=== PATIENT | female | born 1985 | race Caucasian/White ===

== ENCOUNTER 2018-07-19 12:25 | Inpatient (IN) | payer OTHER ==
[~2018-07-19 12:25] MED LIST: CITRIC ACID/SODIUM CITRATE 30 ML UNIT-DOSE CUP PO ONE; ELECTROLYTE-148 SOLN 1,000 ML IV ONE
[2018-07-19 13:23] VITALS: BMI 47.0
[2018-07-19] MEDS ORDERED: ELECTROLYTE-148 SOLN 1,000 ML IV SCH (13:25)
[2018-07-19] MEDS ORDERED: OXYTOCIN 20 UNITS in 0.9% NS 40 UNIT/2,000 ML INFUS.BAG IV ONE (13:36)
[2018-07-19] MEDS ORDERED: ONDANSETRON 4 MG/2 ML VIAL IVPUSH PRN (13:43)
[2018-07-19] MEDS ORDERED: morphine SULFATE/Preservative Free 0.5 MG/ML (1cc Syringe) ONE (13:54)
[2018-07-19 13:56] LABS: ANION GAP 11 MMOL/L (8-16); BLOOD UREA NITROGEN 9 mg/dL (7-18); CALCIUM 8.7 mg/dL (8.5-10.1); CHLORIDE 108 mmol/L (98-107); CO2 19 mmol/L (21-32); CREATININE 0.5 mg/dL (0.55-1.3); GLUCOSE,RANDOM 70 mg/dL (74-106); POTASSIUM 3.9 mmol/L (3.5-5.1); SODIUM 138 mmol/L (136-145)
[2018-07-19] MEDS ORDERED: CITRIC ACID/SODIUM CITRATE 30 ML UNIT-DOSE CUP PO ONE (14:01)
[2018-07-19] MEDS ORDERED: KETOROLAC TROMETHAMINE 30 MG/1 ML VIAL ONE (14:02)
[2018-07-19] MEDS ORDERED: ePHEDrine SULFATE 50 MG/1 ML AMPULE ONE (14:15)
[2018-07-19] MEDS ORDERED: ceFAZolin SODIUM 1 GM VIAL ONE (14:18)
[2018-07-19] MEDS ORDERED: IBUPROFEN 800 MG/8 ML IJ IVPB PRN (15:20)
[2018-07-19] MEDS ORDERED: METHYLERGONOVINE MALEATE 0.2 MG/1 ML AMP IM PRN (15:20)
--- NOTE | 2018-07-19 15:20 | OP ---
Operative Note - Note: Operative Date: 07/19/18 Pre-Operative Diagnosis: Repeat Low Transverse , Bilateral Tubal Ligation Operation: RLTCS, BTL Findings: VFI, TRINY, tight nuchal x 1, no meconium. Normal tubes and ovaries. Weight 7.14lbs, Apgars 9/9. Post-Operative Diagnosis: Same as Pre-op Surgeon: Elsie Mayo Truck Driver Instructor: Chaka Lund Anesthesia: Spinal Estimated Blood Loss (mls): 800 Drains, Volume Out (mls): 100 (clear urine) Operative Report Dictated: Yes
[2018-07-19] MEDS ORDERED: OXYTOCIN 20 UNITS in 0.9% NS 20 UNIT/1,000 ML INFUS.BAG IV SCH (15:30)
--- NOTE | 2018-07-19 16:17 | HP ---
Past Medical History - Admission Chief Complaint: Here for RLTCS, BTL History of Present Illness: 32yo @ 39wks here for RLTCS, BTL No VB/LOF. No ctx. +FM History Source: Patient Limitations to Obtaining History: No Limitations, Language Barrier - Past Medical History RETAIL ASSOCIATE: No: Alzheimer's, CVA, Dementia, Migraine, Multiple Sclerosis, Peripheral Neuropathy, Parkinson's, Seizure, Syncope, TIA, Vertigo, Other Cardiovascular: No: AFIB, Aneurysm, Aortic Insufficiency, Aortic Stenosis, CAD, CHF, Deep Vein Thrombosis, HTN, Hyperlipdemia, NE, Mitral Insufficiency, Mitral Stenosis, Murmur, Pulmonary Hypertension, Other Pulmonary: No: Asthma, Bronchitis, Cancer, COPD, O2 Dependent, Pneumonia, Previously Intubated, Pulmonary Embolus, Pulmonary Fibrosis, Sleep Apnea, Other Gastrointestinal: No: Ascites, Cancer, Constipation, Crohn's Disease, Diverticulitis, Diverticulosis, Esophageal Varices, Gastritis, GERD, GI Bleed, Hemorrhoids, Hiatal Hernia, Inflamatory Bowel Disease, Irritable Bowel Disease, Pancreatitis, Peptic Ulcer Disease, Ulcerative Colitis, Other Renal/: No: Renal Failure, Renal Inusuff, BPH, Cancer, Hematuria, Hemodialysis , Neurogenic Bladder, Renal Calculi, UTI, Other ...: 5 ...Para: 3 ...Term: 3 ...: 0 ...Spon : 0 ...Induced : 1 ...Multiple Gestation: 0 ...LMP: 10/19/17 ... Weeks Gestation by Dates: 39.0 ...EDC by Dates: 07/26/18 ...EDC by Sono: 07/26/18 - Past Surgical History Past Surgical History: Yes: Hx Myomectomy: No Hx Transabdominal Cerclage: No - Smoking History Smoking history: Never smoked Have you smoked in the past 12 months: No - Alcohol/Substance Use Hx Alcohol Use: No Home Medications - Allergies Allergies/Adverse Reactions: Allergies Allergy/AdvReac Type Severity Reaction Status Date / Time No Known Allergies Allergy Verified 07/19/18 12:46 - Home Medications Home Medications: Ambulatory Orders Ferrous Sulfate [Feosol] 325 mg PO DAILY 07/19/18 Vits96/Iron Fum/Folic [ Tablet] 1 each PO DAILY 07/19/18 Physical Exam - Maternity Vital Signs: Vital Signs Temperature 98.0 F 07/19/18 13:00 Pulse Rate 84 07/19/18 13:00 Respiratory Rate 18 07/19/18 13:00 Blood Pressure 129/81 07/19/18 13:00 O2 Sat by Pulse Oximetry (%) Constitutional: Yes: Well Nourished, No Distress, Calm Eyes: Yes: WNL, Conjunctiva Clear, EOM Intact HENT: Yes: WNL, Atraumatic, Normocephalic Neck: Yes: WNL, Supple, Trachea Midline Cardiovascular: Yes: WNL, Regular Rate and Rhythm Breast(s): Yes: WNL - Labs Lab Results: CBC, BMP 07/19/18 12:54 Assessment/Plan 32yo @ 39wks here for RLTCS, BTL Admit to L&D NPO, IVFs Ancef 2g SCDs Risk of procedure discussed, including bleeding, infection, injury to bladder, bowel, nerves/arteries/veins. All consents Ryne Mayo MD
[2018-07-19] MEDS: FERROUS SO4 325 MG TABLET (FP) PO SCH (23:16)
[2018-07-20 08:11] LABS: BASO % 0.3 % (0-2.0); EOS % 0.7 % (0-4.5); HEMATOCRIT 29.3 % (32.4-45.2); HEMOGLOBIN 9.8 GM/dL (10.7-15.3); LYMPH % 16.6 % (8-40); MCH 30.5 pg (25.7-33.7); MCHC 33.4 g/dl (32.0-36.0); MEAN CELL VOLUME 91.3 fl (80-96); MEAN PLT VOLUME 8.9 fl (7.5-11.1); NEUT % 75.4 % (42.8-82.8); PLATELET COUNT 216 K/MM3 (134-434); RDW 14.2 % (11.6-15.6); WHITE BLOOD COUNT 11.3 K/mm3 (4.0-10.0)
[2018-07-20] MEDS: FERROUS SO4 325 MG TABLET (FP) PO SCH ×2 (09:11→21:57)
[2018-07-20] MEDS: PRENATAL VITAMINS W/ FOLIC ACID TABLET (FP) PO SCH (09:12)
--- NOTE | 2018-07-20 09:21 | OP ---
DATE OF OPERATION: 07/19/2018 PREOPERATIVE DIAGNOSIS: A 39-week , 3 prior sections, desires permanent sterilization. POSTOPERATIVE DIAGNOSIS: A 39-week , 3 prior sections, desires permanent sterilization. PROCEDURE: Repeat low transverse section, bilateral tubal ligation. ANESTHESIA: Spinal. SURGEON: Elsie Mayo MD ORCHARD PRUNER: ROSSY Herron ESTIMATED BLOOD LOSS: 800 mL. INTRAVENOUS FLUIDS: Per anesthesia record. URINE: Clear urine 100 mL at the end of the procedure. FINDINGS: Viable female infant, TRINY position, nuchal x1, tight, delivered through, no meconium, weight 7 pounds 14 ounces, 9, 9, normal tubes and ovaries bilaterally. CONDITION: Stable to recovery room. NATURE OF PROCEDURE: After appropriate consents were signed, the patient was taken to the operating room where spinal anesthesia was administered. She was laid in supine position with a left lateral tilt. Morocho catheter was inserted. Abdomen was prepped and draped in normal sterile fashion. A Pfannenstiel incision was made after the time-out confirmed correct patient and placement. A Pfannenstiel incision was carried through to the underlying layer and the fascia was nicked in the midline. Fascia was extended bilaterally with the Rangel scissors. The fascia was then grasped in the inferior aspect, tented upward, and the rectus muscles dissected off bluntly and with the Rangel scissors. Attention was then paid to the superior aspect, which was taken down in a similar fashion. The muscles were grasped in the midline and with a scalpel. The peritoneum was then entered bluntly. Bladder blade was then inserted as well as the Quevedo retractor. The uterine serosa was then grasped, nicked in the midline, and extended laterally with the Metzenbaum scissors. The bladder flap was created digitally and the blade was then reinserted. The uterus was then incised in the low transverse fashion. Clear amniotic fluid was noted. The head was delivered without difficulty. Tight nuchal was noted , but delivered through. The cord was then clamped and cut upon delivery of the , and it was handed off to the awaiting pediatric staff. The placenta was then removed manually. The uterus was then exteriorized, cleared of clot and debris. The uterus was then closed in a single layer with a 0 Vicryl in an imbricating fashion. There was bleeding at the right edge of the hysterotomy. This was reinforced with another 0 Vicryl. Hemostasis was then noted. Attention was paid to the tubes for tubal ligation. The right tube was grasped with a Guicho, carried through to the fimbriated edge, which appeared normal throughout. The tube was grasped centrally with a Guicho, tented upwards. Using a 0 plain suture, the tube was suture ligated in the [place] fashion. The tubal segment was removed with the Metzenbaum scissors. The tubal stumps were burned with the cautery, and the tubal segment was sent off for pathology. Attention was then paid to the left fallopian tube, which was then ligated in the [place] fashion. Tubal segment was removed with the Metzenbaum scissor. Tubal stump was cauterized with the Bovie. Both tubal stumps were noted to be hemostatic. The hysterotomy was rechecked, also noted to be hemostatic. The uterus was then reintroduced into the abdomen. Bladder blade was reinserted. The hysterotomy was hemostatic. The fallopian tube segments were rechecked and also noted to be hemostatic. Gutters were cleared of clot and debris. Muscle was closed with a 2-0 chromic, fascia was closed with a 0 Vicryl , the subcutaneous layer was closed with a 3-0 chromic, the skin was reapproximated with phyllis. Appropriate bandages were placed. Sponge, lap, needle counts were correct x3. Ancef was given at the start of the procedure. Patient tolerated the procedure well and was taken to the recovery room in stable condition. MD DELL JULIEN/[id number] MTDD
[2018-07-20] MEDS ORDERED: DIPHTH,PERTUSS(ACELL),TET 0.5 ML DISP.SYRIN IM ONE (10:00)
--- NOTE | 2018-07-20 11:27 | PN ---
Progress Note (short form) - Note Progress Note: Anesthesia/pain Pt seen and examined S:Alert and awake comfortable O: Vital Signs Temperature 98.6 F 07/20/18 08:18 Pulse Rate 85 07/20/18 08:18 Respiratory Rate 20 07/20/18 11:00 Blood Pressure 108/59 L 07/20/18 08:18 O2 Sat by Pulse Oximetry (%) 100 07/19/18 16:40 CBC, BMP 07/20/18 07:00 07/19/18 12:54 A/P c section s/p Doing well post op Continue current care Tarun Parnell MD
[2018-07-20] MEDS: oxyCODONE HCL 5 MG TABLET PO PRN ×2 (12:43→22:01)
[2018-07-20] MEDS: SIMETHICONE 80 MG TAB.CHEW (FP) PO PRN ×2 (12:43→22:00)
[2018-07-20] MEDS: IBUPROFEN 600 MG TABLET (FP) PO PRN ×2 (12:43→22:01)
--- NOTE | 2018-07-20 13:14 | PN ---
Post Progress Note Type of Delivery: Repeat C/S Vital Signs: Vital Signs Temperature 98.1 F 07/20/18 13:10 Pulse Rate 85 07/20/18 13:10 Respiratory Rate 20 07/20/18 13:10 Blood Pressure 91/56 L 07/20/18 13:10 O2 Sat by Pulse Oximetry (%) 100 07/19/18 16:40 Uterus: Yes: Fundus Firm Incision: Yes: Dressing dry and intact Abdomen/GI: Yes: Abdomen soft Lochia: Yes: Rubra Lochia, amount: Small Extremities: Yes: Calves non-tender Perineum: Yes: Intact Activity: Ambulating - Labs Labs: CBC WBC 11.3 K/mm3 (4.0-10.0) H 07/20/18 07:00 RBC 3.20 M/mm3 (3.60-5.2) L 07/20/18 07:00 Hgb 9.8 GM/dL (10.7-15.3) L 07/20/18 07:00 Hct 29.3 % (32.4-45.2) L D 07/20/18 07:00 MCV 91.3 fl (80-96) 07/20/18 07:00 MCH 30.5 pg (25.7-33.7) 07/20/18 07:00 MCHC 33.4 g/dl (32.0-36.0) 07/20/18 07:00 RDW 14.2 % (11.6-15.6) 07/20/18 07:00 Plt Count 216 K/MM3 (134-434) 07/20/18 07:00 MPV 8.9 fl (7.5-11.1) 07/20/18 07:00 Absolute Neuts (auto) 8.5 K/mm3 (1.5-8.0) H 07/20/18 07:00 Neutrophils % 75.4 % (42.8-82.8) 07/20/18 07:00 Lymphocytes % 16.6 % (8-40) D 07/20/18 07:00 Monocytes % 7.0 % (3.8-10.2) 07/20/18 07:00 Eosinophils % 0.7 % (0-4.5) 07/20/18 07:00 Basophils % 0.3 % (0-2.0) 07/20/18 07:00 Nucleated RBC % 0 % (0-0) 07/20/18 07:00 Assessment/Plan 32yo s/p RLTCS, BTL, POD#1 Routine PP care OOB, ambulate Labs reviewed D/C to home by POD#4 Ryne Mayo MD
[2018-07-20] MEDS: SENNOSIDES/DOCUSATE COMBO (SENNA PLUS) TABLET (UD) PO PRN (21:57)
--- NOTE | 2018-07-21 05:38 | PN ---
Progress Note (short form) - Note Progress Note: pod 2 s/p repeat c/s doing well, has mild cramps. passing gas , no excess vaginal bleed CBC, BMP 07/20/18 07:00 07/19/18 12:54 Last Vital Signs Temp Pulse Resp BP Pulse Ox 98.6 F 92 H 20 122/70 100 07/20/18 22:00 07/20/18 22:00 07/20/18 22:00 07/20/18 22:00 07/19/18 16:40 abdomen soft, no distension, no cva incision dry, clean no calf tenderness plan ambulate, cbc in am pain management
[2018-07-21] MEDS: IBUPROFEN 600 MG TABLET (FP) PO PRN ×2 (09:02→22:01)
[2018-07-21] MEDS: SIMETHICONE 80 MG TAB.CHEW (FP) PO PRN ×2 (09:02→22:01)
[2018-07-21] MEDS: PRENATAL VITAMINS W/ FOLIC ACID TABLET (FP) PO SCH (09:02)
[2018-07-21] MEDS: FERROUS SO4 325 MG TABLET (FP) PO SCH ×2 (09:02→21:58)
[2018-07-21] MEDS: oxyCODONE HCL 5 MG TABLET PO PRN ×2 (09:02→22:01)
--- NOTE | 2018-07-21 18:15 | PATH ---
Surgical Pathology Report Patient Name: OBI MAN [facility]. Rec. #: [id number] /Age/Gender: 1985 (Age: 32) / F Account: [id number] Location: [facility] OBS/DECK SUPERVISOR Taken: 07/19/2018 Received: 07/20/2018 Reported: 07/21/2018 Physicians: Elsie Mayo Specimen(s) Received A: PLACENTA B: PORTION OF RIGHT FALLOPIAN TUBE C: PORTION OF LEFT FALLOPIAN TUBE Clinical History , 39 weeks, x2 Final Diagnosis A. PLACENTA: THIRD TRIMESTER PLACENTA SHOWING CHRONIC DECIDUITIS WITH LYMPHOPLASMACYTIC INFILTRATE. TRIVASCULAR CORD. MEMBRANES WITH NO DIAGNOSTIC ABNORMALITIES. B.RIGHT PORTION OF FALLOPIAN TUBE: COMPLETE CROSS SECTION OF THE FALLOPIAN TUBE IDENTIFIED. C. LEFT PORTION OF FALLOPIAN TUBE: COMPLETE CROSS SECTION OF THE FALLOPIAN TUBE IDENTIFIED. Electronically Signed Enrique Chauhan M.D. Gross Description A. The specimen is received fresh labeled placenta and is a 778 gram, 19.0 x 16.0 x 3.5 cm. placenta with attached membranes and umbilical cord. The attached membranes are davila, translucent with focal opacities and insert marginally. The umbilical cord measures 30 cm. in length and averages 1 cm. in diameter. The cord inserts eccentrically, 3.5 cm. to the nearest margin. No true knots or strictures are identified. Cut surface of the umbilical cord reveals 3 vessels. The surface is ahn-blue with minimal fibrin deposition and appropriate caliber vessels. The maternal surface is red-brown with focal defects. Sectioning reveals red-brown, spongy parenchyma. No lesions are identified. Preschool Teacher'S Assistant sections are submitted in three cassettes as follows: 1- membrane rolls and umbilical cord; 2-3- full thickness sections of placenta. B. Received in formalin labeled "portion of right fallopian tube" is a 0.8 cm in length portion of fallopian tube. No fimbria are present. The outer surface is davila-pink and smooth. Sectioning reveals an unremarkable lumen. Preschool Teacher'S Assistant sections are submitted in one cassette. C. Received in formalin labeled "portion of left fallopian tube" is a 0.6 cm in length portion of fallopian tube. No fimbria are present. The outer surface is davila-pink and smooth. Sectioning reveals an unremarkable lumen. The specimen is bisected and entirely submitted in one cassette. 07/20/2018 saudi07/20/2018
[2018-07-21] MEDS: SENNOSIDES/DOCUSATE COMBO (SENNA PLUS) TABLET (UD) PO PRN (21:58)
--- NOTE | 2018-07-22 07:17 | PN ---
Post Progress Note - Subjective Subjective: c/o painscale 4-5 bm done voiding without difficulty Post Day: 3 Type of Delivery: Repeat C/S Vital Signs: Vital Signs Temperature 98.9 F 07/21/18 22:00 Pulse Rate 94 H 07/21/18 22:00 Respiratory Rate 20 07/21/18 22:00 Blood Pressure 117/57 L 07/21/18 22:00 O2 Sat by Pulse Oximetry (%) 100 07/19/18 16:40 Breast Exam: Yes: Soft, Other (attempting Bf & bottle feeding ). No: Engorged Uterus: Yes: Fundus Firm, Fundus below umbilicus, Non-tender Incision: Yes: [place] intact. No: Redness, Oozing Abdomen/GI: Yes: Abdomen soft, Passing flatus, Tolerating PO (diet ). No: Abdominal Distention (obese abdomen ), Tender Lochia: Yes: Rubra Lochia, amount: Small Extremities: Yes: Calves non-tender Perineum: Yes: Intact Activity: Ambulating - Labs Labs: CBC WBC 11.3 K/mm3 (4.0-10.0) H 07/20/18 07:00 RBC 3.20 M/mm3 (3.60-5.2) L 07/20/18 07:00 Hgb 9.8 GM/dL (10.7-15.3) L 07/20/18 07:00 Hct 29.3 % (32.4-45.2) L D 07/20/18 07:00 MCV 91.3 fl (80-96) 07/20/18 07:00 MCH 30.5 pg (25.7-33.7) 07/20/18 07:00 MCHC 33.4 g/dl (32.0-36.0) 07/20/18 07:00 RDW 14.2 % (11.6-15.6) 07/20/18 07:00 Plt Count 216 K/MM3 (134-434) 07/20/18 07:00 MPV 8.9 fl (7.5-11.1) 07/20/18 07:00 Absolute Neuts (auto) 8.5 K/mm3 (1.5-8.0) H 07/20/18 07:00 Neutrophils % 75.4 % (42.8-82.8) 07/20/18 07:00 Lymphocytes % 16.6 % (8-40) D 07/20/18 07:00 Monocytes % 7.0 % (3.8-10.2) 07/20/18 07:00 Eosinophils % 0.7 % (0-4.5) 07/20/18 07:00 Basophils % 0.3 % (0-2.0) 07/20/18 07:00 Nucleated RBC % 0 % (0-0) 07/20/18 07:00 Problem List - Problems (1) section Code(s): Z98.89 - OTHER SPECIFIED POSTPROCEDURAL STATES * DO NOT USE * (2) Encounter for visit Code(s): Z39.2 - ENCOUNTER FOR ROUTINE FOLLOW-UP Assessment/Plan ass :s/p repeat c/section , anemia stable plan pt requests for discharge today
[2018-07-22 07:46] LABS: BASO % 0.4 % (0-2.0); EOS % 3.2 % (0-4.5); HEMATOCRIT 30.2 % (32.4-45.2); HEMOGLOBIN 9.9 GM/dL (10.7-15.3); LYMPH % 24.4 % (8-40); MCH 30.5 pg (25.7-33.7); MCHC 32.9 g/dl (32.0-36.0); MEAN CELL VOLUME 92.7 fl (80-96); MEAN PLT VOLUME 8.6 fl (7.5-11.1); MONO % 8.2 % (3.8-10.2); NEUT % 63.8 % (42.8-82.8); PLATELET COUNT 267 K/MM3 (134-434); RBC 3.26 M/mm3 (3.60-5.2); RDW 14.5 % (11.6-15.6); WHITE BLOOD COUNT 9.3 K/mm3 (4.0-10.0)
[2018-07-22 08:23] VITALS: BP 125/70; PULSE 83; TEMP 98.8
[2018-07-22] MEDS: FERROUS SO4 325 MG TABLET (FP) PO SCH (09:28)
[2018-07-22] MEDS: PRENATAL VITAMINS W/ FOLIC ACID TABLET (FP) PO SCH (09:28)
[2018-07-22 11:46] LABS: ANISOCYTOSIS 1+; MACROCYTOSIS 1+; PLATELET ESTIMATE NORMAL
== END 2018-07-22 13:45 | disposition home or self-care (01) | DRG 540 ==
LOC: JLDR 12:25 → J3W 17:15
PROVIDERS: ADMIT Obstetrics & Gynecology; ATTEND Obstetrics & Gynecology
PROC: 10D00Z1 Extraction of Products of Conception, Low, Open Approach (ICD-10-PCS; principal; 2018-07-19)
PROC: 0UL70DZ Occlusion of Bilateral Fallopian Tubes with Intraluminal Device, Open Approach (ICD-10-PCS; 2018-07-19)
DX: O34.211 Maternal care for low transverse scar from previous cesarean delivery (principal); O69.1XX0 Labor and delivery complicated by cord around neck, with compression, not applicable or unspecified; Z3A.39 39 weeks gestation of pregnancy; Z37.0 Single live birth; Z30.2 Encounter for sterilization
CPT/HCPCS: 36415; 80048; 85025; 86593; 88302-TC; 88307-TC; 90715

== ENCOUNTER 2019-08-30 12:24 | Inpatient (IN) | payer OTHER ==
[2019-08-30 12:33] VITALS: BMI 45.7
[2019-08-30] MEDS ORDERED: ACETAMINOPHEN 1000 MG/100 ML VIAL (NON FORMULARY) IVPB ONE (13:24)
[2019-08-30] MEDS ORDERED: MAG HYDROX/AL HYDROX/SIMETH 30 ML UNIT-DOSE CUP PO ONE (13:24)
[2019-08-30] MEDS ORDERED: ONDANSETRON 4 MG/2 ML VIAL IVPUSH ONE (13:24)
[2019-08-30] MEDS ORDERED: SODIUM CHLORIDE 0.9% 500 ML INFUS.BAG IV ONE (13:38)
[2019-08-30] MEDS ORDERED: ACETAMINOPHEN INJECTION 100 ML IVPB ONE (14:09)
[2019-08-30] MEDS ORDERED: MAG HYDROX/AL HYDROX/SIMETH 30 ML UNIT-DOSE CUP ONE (14:09)
[2019-08-30] MEDS ORDERED: ONDANSETRON 4 MG/2 ML VIAL ONE (14:09)
[2019-08-30 14:42] LABS: BASO % 0.3 % (0-2.0); HEMATOCRIT 37.8 % (32.4-45.2); HEMOGLOBIN 12.4 GM/dL (10.7-15.3); LYMPH % 2.7 % (8-40); MCH 28.2 pg (25.7-33.7); MCHC 32.7 g/dl (32.0-36.0); MEAN CELL VOLUME 86.1 fl (80-96); MEAN PLT VOLUME 9.1 fl (7.5-11.1); MONO % 5.7 % (3.8-10.2); NEUT % 91.3 % (42.8-82.8); PLATELET COUNT 331 K/MM3 (134-434); RBC 4.39 M/mm3 (3.60-5.2); RDW 14.6 % (11.6-15.6); WHITE BLOOD COUNT 28.9 K/mm3 (4.0-10.0)
[2019-08-30 15:09] LABS: ANISOCYTOSIS 0; MACROCYTOSIS 0; PLATELET ESTIMATE NORMAL
[2019-08-30 15:12] LABS: ALBUMIN 3.7 g/dl (3.4-5.0); ALK PHOS 275 U/L (45-117); ANION GAP 8 MMOL/L (8-16); BILIRUBIN,TOTAL 3.7 mg/dL (0.2-1); BLOOD UREA NITROGEN 9.6 mg/dL (7-18); CHLORIDE 100 mmol/L (98-107); CO2 23 mmol/L (21-32); CREATININE 0.7 mg/dL (0.55-1.3); GLUCOSE,RANDOM 117 mg/dL (74-106); LIPASE 7054 U/L (73-393); POTASSIUM 5.1 mmol/L (3.5-5.1); SGOT/AST 430 U/L (15-37); SGPT/ALT 417 U/L (13-61); SODIUM 131 mmol/L (136-145); TOT PROT 7.9 g/dl (6.4-8.2)
[2019-08-30] MEDS ORDERED: PIPERACILLIN/TAZOB 3.375 GM 3.375 GM in DEXTROSE 5%-WATER - 50 ML IVPB ONE (15:15)
[2019-08-30] MEDS ORDERED: SODIUM CHLORIDE 0.9% 1000 ML INFUS.BAG IV ONE (15:16)
--- NOTE | 2019-08-30 15:20 | PDOC ---
Documentation entered by Brunilda Robles SCRIBE, acting as scribe for Valdemar Frausto MD. Valdemar Frausto MD: This documentation has been prepared by the Margaret freitas Nirvannie, SCRIBE, under my direction and personally reviewed by me in its entirety. I confirm that the documentation accurately reflects all work, treatment, procedures, and medical decision making performed by me. Attending Attestation - Resident Resident Name: DanielBrandon - ED Attending Attestation I have performed the following: I have examined & evaluated the patient, The case was reviewed & discussed with the resident, I agree w/resident's findings & plan, Exceptions are as noted - HPI HPI: 08/30/19 14:55 CC: Nausea, Vomiting, Abdominal pain HPI: The patient is a 33 year old female, with no significant past medical history, who presents to the emergency department with, 2 days of nausea, vomiting, and abdominal pain. She denies recent chest pain or shortness of breath. Allergies: NKDA - Physicial Exam PE: 09/03/19 13:23 Vitals: Triage Vital signs reviewed General Appearance: No acute distress, well nourished well developed, Head: Atraumatic, Cardiac: Regular rate and rhythym, no murmurs, no rubs, no gallops, Lungs: Clear to auscultation bilateral, good air movement bilaterally, Abdomen: Right upper quadrant tenderness to palpation Extremities: Full range of motion to all extremities, no cyanosis, clubbing, or edema Skin: Warm and dry, no rashes or lesions, no rash, no petechiae Psych: Normal mood, normal affect - Critical Care Time Total Critical Care Time: 35 Critical Care Statement: The care of this patient involved high complexity decision making to prevent further life threatening deterioration of the patient 's condition and/or to evaluate & treat vital organ system(s) failure or risk of failure. - Medical Decision Making 09/03/19 13:23 33 years old obese with right upper quadrant pain and some epigastric discomfort differential diagnosis includes biliary colic versus cholecystitis versus pancreatitis versus dyspepsia We will check labs ultrasound and reassess Reevaluation laboratory analysis notable for elevated white blood cell count elevated LFTs elevated bilirubin and elevated lipase. Given these findings concern for choledocholithiasis with gallstone pancreatitis Broad-spectrum antibiotics ordered IV fluids ordered MRCP ordered Patient will require GI consultation for possible ERCP as well as surgical consultation for eventual cholecystectomy Dr. Sandhu to follow-up disposition and reassess.
--- NOTE | 2019-08-30 15:59 | PDOC ---
History of Present Illness - General Chief Complaint: Pain Stated Complaint: ABD PAIN Time Seen by Provider: 08/30/19 12:46 History Source: Patient Exam Limitations: No Limitations - History of Present Illness Initial Comments: 33 y/o F, no significant pmh, presented to the ED c/o of constant, 05/15, abdominal pain of 1 day duration that started postprandial after she ate some spicy food, associated with nausea and 6 episodes of nbnb vomiting. As per pt, she began to have the pain a couple of hours after her meal, which has worsened since onset, w/ no relief with pain meds. She reports that she has never had similar symptoms in the past. Her last BM was yesterday morning and she usually has constipation. On admission, LFT's were elevated and Lipase was 7054 w/ a WBC of 28,000. Pt was taken for MRCP and started on Zosyn. Admits to abdominal pain, n/v. Denies f/c/sob/chest pain, numbness or tingling, diarrhea 08/30/19 15:57 08/30/19 16:02 08/30/19 16:42 08/30/19 16:44 08/30/19 16:45 Associated Symptoms: reports: denies symptoms, nausea/vomiting. denies: chest pain, cough, diaphoresis, fever/chills, headaches, shortness of breath Past History - Past Medical History Allergies/Adverse Reactions: Allergies Allergy/AdvReac Type Severity Reaction Status Date / Time No Known Allergies Allergy Verified 08/30/19 12:33 Home Medications: Ambulatory Orders NK [No Known Home Medication] 08/30/19 Asthma: No Cancer: No Cardiac Disorders: No COPD: No Diabetes: No HTN: No Seizures: No Thyroid Disease: No - Surgical History Abdominal Surgery: No Appendectomy: No Cholecystectomy: No GI Surgery: No - Psycho Social/Smoking Cessation Hx Smoking History: Never smoked Have you smoked in the past 12 months: No Hx Alcohol Use: No Drug/Substance Use Hx: No Hx Substance Use Treatment: No Review of Systems - Review of Systems Able to Perform ROS?: Yes Is the patient limited Georgian proficient: No Constitutional: Yes: Symptoms Reported, Weight Stable. No: Chills, Diaphoresis , Fever HEENTM: Yes: Symptoms Reported. No: Blurred Vision Respiratory: Yes: Symptoms reported. No: Cough, Orthopnea, Shortness of Breath , Wheezing, Productive cough Cardiac (ROS): Yes: Symptoms Reported. No: Chest Pain, Edema, Irregular Heart Rate, Chest Tightness ABD/GI: Yes: Symptoms Reported, Constipated, Nausea, Vomiting, Indigestion. No : Abdominal Distended, Diarrhea : Yes: Symptoms Reported. No: Burning Musculoskeletal: Yes: Symptoms Reported. No: Back Pain Neurological: Yes: Symptoms reported. No: Headache, Numbness, Paresthesia *Physical Exam - Vital Signs Last Vital Signs Temp Pulse Resp BP Pulse Ox 98 F 77 18 140/82 99 08/30/19 12:31 08/30/19 12:31 08/30/19 12:31 08/30/19 12:31 08/30/19 12:31 - Physical Exam General Appearance: Yes: Nourished, Appropriately Dressed, Apparent Distress, Obese HEENT: positive: EOMI, VARSHA, Normal ENT Inspection, Normal Voice, Pharynx Normal Neck: positive: Trachea midline, Normal Thyroid, Supple. negative: Lymphadenopathy (R), Lymphadenopathy (L) Respiratory/Chest: positive: Lungs Clear, Normal Breath Sounds. negative: Respiratory Distress, Labored Respiration, Crackles, Rales, Dullness Cardiovascular: positive: Regular Rhythm, Regular Rate, S1, S2. negative: Murmur, Gallop/S3, Gallop/S4 Vascular Pulses: Dorsalis-Pedis (R): 2+, Doralis-Pedis (L): 2+ Gastrointestinal/Abdominal: positive: Distended, Guarding, Rebound, Tenderness. negative: Normal Bowel Sounds (decreased Bowel sounds) Neurologic: positive: Fully Oriented, Alert, Normal Mood/Affect ED Treatment Course - LABORATORY CBC & Chemistry Diagram: 08/30/19 14:00 08/30/19 14:00 - ADDITIONAL ORDERS Additional order review: Laboratory Results 08/30/19 08/30/19 14:00 14:00 Sodium 131 L Potassium 5.1 Chloride 100 Carbon Dioxide 23 Anion Gap 8 BUN 9.6 Creatinine 0.7 Est GFR (CKD-EPI)AfAm 133.81 Est GFR (CKD-EPI)NonAf 115.45 Random Glucose 117 H Calcium 9.0 Total Bilirubin 3.7 H AST 430 H ALT 417 H Alkaline Phosphatase 275 H Troponin I < 0.02 Total Protein 7.9 Albumin 3.7 Lipase 7054 H Serum , Qual Negative 08/30/19 14:00 RBC 4.39 MCV 86.1 MCHC 32.7 RDW 14.6 MPV 9.1 Neutrophils % 91.3 H D Lymphocytes % 2.7 L D Monocytes % 5.7 Eosinophils % 0.0 D Basophils % 0.3 - RADIOLOGY Radiology Studies Ordered: Category Date Time Status ABDOMEN US [US] Stat Ultrasound 08/30/19 13:38 Completed - Medications Given in the ED: ED Medications Discontinued Medications Generic Name Dose Route Start Last Admin Trade Name Dirk PRN Reason Stop Dose Admin Acetaminophen 1,000 mg 08/30/19 13:24 08/30/19 14:15 Ofirmev Injection - IVPB 08/30/19 13:25 1,000 mg ONCE ONE Administration Al Hydroxide/Mg Hydroxide 30 ml 08/30/19 13:24 08/30/19 14:10 Mylanta Oral Suspension - PO 08/30/19 13:25 30 ml ONCE ONE Administration Ondansetron HCl 4 mg 08/30/19 13:24 08/30/19 14:15 Zofran Injection IVPUSH 08/30/19 13:25 4 mg ONCE ONE Administration Sodium Chloride 1,000 ml 08/30/19 13:38 08/30/19 14:15 Normal Saline - IV 08/30/19 13:39 1,000 ml ONCE ONE Administration Medical Decision Making - Medical Decision Making 33 y/o F, no significant pmh, presented to the ED c/o of constant, 05/15, abdominal pain of 1 day duration that started postprandial after she ate some spicy food, associated with nausea and 6 episodes of nbnb vomiting #Abdominal pain w/ n/v 2/2 to gall stone Pancreatitis Lipase 7054, LFT elevated, RUQ pain and tenderness Sonographic US positive murphys US shows multiple stones and a dilated CBC to 12mm MRCP ordered Dr. Gandara, surgery, to see pt once GI evaluates Spoke with Dr. Dickerson, who directed to GI service, will await GI service response to evaluate pt. Zosyn given IVF Will keep NPO 08/30/19 16:48 08/30/19 16:50 08/30/19 16:51 08/30/19 17:04 Discharge - Discharge Information Problems reviewed: Yes Clinical Impression/Diagnosis: Pancreatitis, gallstone Condition: Worsened - Admission Yes - Follow up/Referral - Patient Discharge Instructions - Post Discharge Activity
[2019-08-30] MEDS ORDERED: PIPERACILLIN/TAZOB 3.375 GM 3.375 GM/50 ML BAG IVPB ONE (16:55)
[2019-08-30] MEDS ORDERED: INDOMETHACIN 50 MG RECTAL SUPPOSITORY PR ONE (17:04)
--- NOTE | 2019-08-30 17:07 | CON.GI ---
Consult Consult Specialty:: GI Referred by:: Hospitalist Hannah - History of Present Illness Chief Complaint: Abdominal Pain History of Present Illness: 33F admitted for evaluation of upper abdominal pain, nausea and vomiting. This all started around 5pm last night. Pain became progressvely more intense prompting ER evaluation. In ER noted afebrile, normotensive. marked leukocytosis , lipase 7000, elevated liver chemistries and abdominal US was performed revealing gallstones and 12mm CBD. Given IV hydration and zosyn x 1. I brought her back to ER from MRI where she just underwent MRCP. She states that pain improved. No further vomiting. Describes cimilar episode 1 year ago, took pepto bismol and felt better. - History Source History Provided By: Patient - Past Surgical History Past Surgical History: Yes: (x2) Additional Surgical History: BTL - Alcohol/Substance Use Hx Alcohol Use: Yes (occasional) History of Substance Use: reports: None - Smoking History Smoking history: Never smoked Have you smoked in the past 12 months: No - Social History Usual Living Arrangement: With Child Occupation: Bus Driver School Place of : Other ([place]) History of Recent Travel: No Home Medications - Allergies Allergies/Adverse Reactions: Allergies Allergy/AdvReac Type Severity Reaction Status Date / Time No Known Allergies Allergy Verified 08/30/19 12:33 - Home Medications Home Medications: Ambulatory Orders NK [No Known Home Medication] 08/30/19 Family Medical History Other Family History: Mother: Alive: BCA. Father: alive: healthy. 1 brother, 3 sisters, 1 sister with vitiligo. 4 children: healthy Review of Systems - Review of Systems Constitutional: denies: Chills, Fever Respiratory: denies: Cough Gastrointestinal: reports: Abdominal Pain, Nausea, Vomiting Physical Exam-GI Vital Signs: Vital Signs: taken by myself at 1630 Temperature 98.5 orally F 08/30/19 12:31 Pulse Rate 76 08/30/19 12:31 Respiratory Rate 16 08/30/19 12:31 Blood Pressure 105/68 08/30/19 12:31 O2 Sat by Pulse Oximetry (%) 08/30/19 12:31 Constitutional: Yes: Calm Eyes: No: Sclera Icterus Cardiovascular: Yes: Regular Rate and Rhythm Gastrointestinal Inspection: No: Distention ...Auscultate: Yes: Normoactive Bowel Sounds ...Palpate: Yes: Soft, Tenderness (Mild TTP mid abdomen / epigastrium. Negative martinez's). No: Hepatomegaly, Splenomegaly ...Percussion: No: Tympanitic Edema: No (No LE edema) Neurological: Yes: Alert Labs: CBC, BMP 08/30/19 14:00 08/30/19 14:00 Imaging - Results Ultrasound: Report Reviewed Problem List - Problems (1) Pancreatitis, gallstone Assessment/Plan: Suspected gallstone pancreatitis. With marked leukocytosis and dilated CBD, retained CBD stone with component of cholangitis would need to be considered as well. Ms. Burger appears well clinically and remains hemodynamically stable / afebrile. MRCP was performed and result is pending, however in reviewing the images it looks as though she may have filling defects in the CBD. I discussed the likely need for ERCP with Ms. Burger to help remove CBD stone and alleviate potential infection. When I asked if she would prefer if i explained things further in Icelandic, she said no. We discussed potential risks of the procedure like but not limited to bleeding, perforation requiring surgery to repair, infection, sedation medication effects all of which could be potentially life threatening. She has agreed to the procedure. For now: NPO IV hydration: ordered LR @ 250cc per hour IV Abx to cover for possible superimposed cholangitis: Ordered Zosyn 3.375g q 8 hours ID consult placed to Dr. Monaco Surgical consult placed: Dr. Orta as she will need cholecystectomy once biliary tract investigated AM labs ordered including T&C Indocin suppository ordered to be given personnel generalist manager to endoscopy Follow-up MRCP report Discussed case with biliary endoscopist Dr. Dickerson. Plan will be for ERCP tomorrow, sooner if clinically indicated. I spoke with Dr. Maya who also performs ERCP and let him know about Ms. Burger's case as well in case procedure needed to be performed tonight. Problems reviewed: Yes Code(s): K85.10 - BILIARY ACUTE PANCREATITIS WITHOUT NECROSIS OR INFECTION
[2019-08-30] MEDS ORDERED: LACTATED RINGERS SOLUTION 1,000 ML/1,000 ML INFUS.BAG IV SCH ×2 (17:15→18:45)
--- NOTE | 2019-08-30 17:53 | HP ---
CHIEF COMPLAINT: abdominal pain, nausea and vomiting PCP: Anitha Covington MD HISTORY OF PRESENT ILLNESS: Patient is a 33 year old female with two c - sections, last one 08/2018, otherwise, no significant past medical history and on no home medications. She presents to the ED today with abdominal pain that is constant and radiates across her abdomen with associated nausea/vomiting six (6) times since yesterday evening (non bili, non bloody). She began to have abdominal pain yesterday 10 minutes after eating spicy pork, spicy foods and beans. She also had some alcoholic drinks but not in excess. Abdominal pain worsened since onset with no relief with pain medications or rest. Her last BM was yesterday, was normal. On admission, labs significant for elevated AST/ALT, elevated lipase 7000s, WBC 28.9, bili 3.1 with sclera icterus. Patient had an MRCP which is pending official read. She was given Zosyn in the ED. she denies any sob/chest pain, numbness or tingling, or diarrhea. ER course was notable for: (1) elevated lipase 7000s, WBC 28.9 (2) AST/ALT (3) bili 3.1 with sclera icterus (4) abdominal ultrasound: slightly distended gallbladder with multiple calculi, prom. cbd w/o obstruction, hepatomegaly with diffused fatty inf of liver. Recent Travel: none PAST MEDICAL/SURGICAL HISTORY: two c - sections, Social History: Smoking: denies Alcohol: occasionally Drugs: none Allergies No Known Allergies Allergy (Verified 08/30/19 12:33) HOME MEDICATIONS: Home Medications Medication Instructions Recorded NK [No Known Home Medication] 08/30/19 PHYSICAL EXAMINATION Vital Signs - 24 hr 08/30/19 12:31 Temperature 98 F Pulse Rate 77 Respiratory 18 Rate Blood Pressure 140/82 O2 Sat by Pulse 99 Oximetry (%) GENERAL: Awake, alert, and fully oriented, in no acute distress. mild jaundice HEAD: Normal with no signs of trauma. EYES: Pupils equal, round and reactive to light, extraocular movements intact, sclera anicteric, conjunctiva clear. No lid lag. EARS, NOSE, THROAT: Ears normal, nares patent, oropharynx clear without exudates. Moist mucous membranes. NECK: Normal range of motion, supple without lymphadenopathy, JVD, or masses. LUNGS: Breath sounds equal, clear to auscultation bilaterally. No wheezes, HEART: Regular rate and rhythm, ABDOMEN: tender, pain on light palpation of abdomen MUSCULOSKELETAL: No CVA tenderness. UPPER EXTREMITIES: No peripheral edema. LOWER EXTREMITIES: No peripheral edema. NEUROLOGICAL: Normal speech. Normal gait. PSYCHIATRIC: Cooperative. Good eye contact. Appropriate mood and affect. SKIN: Warm, dry, normal turgor, no rashes or lesions noted, normal capillary refill. Laboratory Results - last 24 hr 08/30/19 08/30/19 08/30/19 14:00 14:00 14:00 WBC 28.9 H RBC 4.39 Hgb 12.4 Hct 37.8 D MCV 86.1 MCH 28.2 MCHC 32.7 RDW 14.6 Plt Count 331 D MPV 9.1 Absolute Neuts (auto) 26.4 H Neutrophils % 91.3 H D Neutrophils % (Manual) 83.2 H Band Neutrophils % 10.1 Lymphocytes % 2.7 L D Lymphocytes % (Manual) 1.1 L D Monocytes % 5.7 Monocytes % (Manual) 5 Eosinophils % 0.0 D Eosinophils % (Manual) 0.0 D Basophils % 0.3 Basophils % (Manual) 0.0 Myelocytes % (Man) 0 D Promyelocytes % (Man) 0 Blast Cells % (Manual) 0 Nucleated RBC % 0 Metamyelocytes 1 D Hypochromia 0 Platelet Estimate Normal Polychromasia 0 Poikilocytosis 0 Anisocytosis 0 Microcytosis 0 Macrocytosis 0 Sodium 131 L Potassium 5.1 Chloride 100 Carbon Dioxide 23 Anion Gap 8 BUN 9.6 Creatinine 0.7 Est GFR (CKD-EPI)AfAm 133.81 Est GFR (CKD-EPI)NonAf 115.45 Random Glucose 117 H Calcium 9.0 Total Bilirubin 3.7 H AST 430 H ALT 417 H Alkaline Phosphatase 275 H Troponin I < 0.02 Total Protein 7.9 Albumin 3.7 Lipase 7054 H Serum , Qual Negative ASSESSMENT/PLAN: Family Medical History Family Hx Cancer: Mother Problem List - Problem (1) Leukocytosis Assessment/Plan: sepsis workup initiated for WBC 28.9 given zosyn in ED, IVF blood,urine cultures ordered, ordered chest xray, lactic acid Code(s): D72.829 - ELEVATED WHITE BLOOD CELL COUNT, UNSPECIFIED (2) Pancreatitis, gallstone Assessment/Plan: bili 3.1, elevated liver enzymes, lipase 7K, elevated WBC 28.9 abdominal pain since yesterday after eating pork, spicy foods maintain NPO, IVF with LR, antibiotics per ID MRCP pending read repeat lipase in a.m Code(s): K85.10 - BILIARY ACUTE PANCREATITIS WITHOUT NECROSIS OR INFECTION (3) Abdominal pain Assessment/Plan: abdominal pain since yesterday after eating pork, spicy foods elevated WBC 28.9 maintain NPO, IVF with LR, antibiotics per ID ID consulted by GI specialist MRCP pending read Seen by GI and possible ERCP recommended to remove CBD stone and alleviate possible infection Surgery consulted for possible cholecystectomy Code(s): R10.9 - UNSPECIFIED ABDOMINAL PAIN (4) Scleral icterus Assessment/Plan: bilirubin 3.1, mild scleral icterus and generalized jaundice Code(s): R17 - UNSPECIFIED JAUNDICE (5) Prophylactic measure Assessment/Plan: fen LR @ 250cc /hr monitor electrolytes npo full code Code(s): Z29.9 - ENCOUNTER FOR PROPHYLACTIC MEASURES, UNSPECIFIED Visit type - Emergency Visit Emergency Visit: Yes ED Registration Date: 08/30/19 Care time: The patient presented to the Emergency Department on the above date and was hospitalized for further evaluation of their emergent condition. - New Patient This patient is new to me today: Yes Date on this admission: 08/30/19 - Critical Care Critical Care patient: No
[2019-08-30] MEDS: PIPERACILLIN/TAZOB 3.375 GM 3.375 GM in DEXTROSE 5%-WATER - 50 ML IVPB SCH (18:00)
[2019-08-30] MEDS: SODIUM CHLORIDE 1,000 ML IV SCH (18:01)
[2019-08-30] MEDS ORDERED: ONDANSETRON 4 MG/2 ML VIAL IVPUSH PRN (18:40)
[2019-08-31] MEDS ORDERED: PIPERACILLIN/TAZOBACTAM 3.375 GM VIAL IVPB ONE ×4 (01:30→10:43)
[2019-08-31] MEDS ORDERED: DEXTROSE 5%-WATER - 50 ML IVPB ONE ×2 (01:30→08:50)
[2019-08-31] MEDS: PIPERACILLIN/TAZOB 3.375 GM 3.375 GM in DEXTROSE 5%-WATER - 50 ML IVPB SCH ×3 (01:43→10:51)
[2019-08-31] MEDS: SODIUM CHLORIDE 1,000 ML IV SCH ×4 (01:44→17:20)
--- NOTE | 2019-08-31 07:57 | PN ---
Progress Note, Physician Chief Complaint: S/P ERCP with removal of stones. Mild abdominal discomfort. History of Present Illness: Patient is a 33 year old female with two c - sections, last one 08/2018, otherwise, no significant past medical history and on no home medications. She presents to the ED today with abdominal pain that is constant and radiates across her abdomen with associated nausea/vomiting six (6) times since yesterday evening (non bili, non bloody). She began to have abdominal pain yesterday 10 minutes after eating spicy pork, spicy foods and beans. She also had some alcoholic drinks but not in excess. Abdominal pain worsened since onset with no relief with pain medications or rest. Her last BM was yesterday, was normal. On admission, labs significant for elevated AST/ALT, elevated lipase 7000s, WBC 28.9, bili 3.1 with sclera icterus. Patient had an MRCP which is pending official read. She was given Zosyn in the ED. she denies any sob/chest pain, numbness or tingling, or diarrhea. - Current Medication List Current Medications: Active Medications Piperacillin Sod/Tazobactam (Sod 3.375 gm/ Dextrose) 50 mls @ 100 mls/hr IVPB Q8H-IV NAIDA; Protocol Piperacillin Sod/Tazobactam (Sod 3.375 gm/ Dextrose) 50 mls @ 100 mls/hr IVPB Q8H-IV NAIDA; Protocol Stop: 08/31/19 10:29 Last Admin: 08/31/19 01:43 Dose: 100 mls/hr Sodium Chloride (Normal Saline -) 1,000 mls @ 250 mls/hr IV ASDIR NAIDA Last Admin: 08/31/19 06:12 Dose: 250 mls/hr Ondansetron HCl (Zofran Injection) 4 mg IVPUSH Q8H PRN PRN Reason: NAUSEA - Objective Vital Signs: Vital Signs Temperature 98 F 08/31/19 05:18 Pulse Rate 74 08/31/19 05:18 Respiratory Rate 18 08/31/19 05:18 Blood Pressure 113/64 08/31/19 05:18 O2 Sat by Pulse Oximetry (%) 96 08/30/19 21:00 Constitutional: Yes: Well Nourished, No Distress, Calm Eyes: Yes: WNL, Conjunctiva Clear HENT: Yes: WNL, Atraumatic, Normocephalic Neck: Yes: WNL, Supple, Trachea Midline Cardiovascular: Yes: WNL, Regular Rate and Rhythm Respiratory: Yes: WNL, Regular, CTA Bilaterally Gastrointestinal: Yes: Normal Bowel Sounds, Soft, Tenderness (mild epigastric) ...Rectal Exam: Yes: Deferred Genitourinary: Yes: WNL Breast(s): Yes: WNL Musculoskeletal: Yes: WNL Extremities: Yes: WNL Edema: No Peripheral Pulses WNL: Yes Peripheral Pulses: Left Radial: 2+, Right Radial: 2+, Left Doralis Pedis: 2+, Right Dorsalis Pedis: 2+, Left Femoral: 2+, Right Femoral: 2+ Integumentary: Yes: WNL Neurological: Yes: WNL, Alert, Oriented ...Motor Strength: WNL Psychiatric: Yes: WNL Labs: CBC, BMP 08/30/19 14:00 08/30/19 14:00 - ....Imaging Ultrasound: Report Reviewed (abdominal ultrasound: slightly distended gallbladder with multiple calculi, prom. cbd w/o obstruction, hepatomegaly with diffused fatty inf of liver.) Problem List - Problems (1) Nausea & vomiting Assessment/Plan: resolving s/p ERCP with shpincterotomy and stone extraction zofran prn can start clear liquids diet and advance as tolerates NPO mon mn for OR tu Code(s): R11.2 - NAUSEA WITH VOMITING, UNSPECIFIED (2) Abdominal pain Assessment/Plan: resolving Code(s): R10.9 - UNSPECIFIED ABDOMINAL PAIN (3) Leukocytosis Assessment/Plan: trending down from 28, afberile wbc 15 s/p ERCP c/w zosyn f/u cx appreciate ID consultation planned cholecyctectomy on tu continue to monitor Code(s): D72.829 - ELEVATED WHITE BLOOD CELL COUNT, UNSPECIFIED (4) Prophylactic measure Assessment/Plan: FEN can start clears and advance as tolerate NPO mn on tu for planned OR monitor electrolyte Code(s): Z29.9 - ENCOUNTER FOR PROPHYLACTIC MEASURES, UNSPECIFIED (5) Pancreatitis, gallstone Assessment/Plan: s/p ERCP planned cholecysctomy on tue Code(s): K85.10 - BILIARY ACUTE PANCREATITIS WITHOUT NECROSIS OR INFECTION Visit type - Emergency Visit Emergency Visit: Yes ED Registration Date: 08/30/19 Care time: The patient presented to the Emergency Department on the above date and was hospitalized for further evaluation of their emergent condition. - New Patient This patient is new to me today: Yes Date on this admission: 08/31/19 - Critical Care Critical Care patient: No - Discharge Referral Referred to [facility] No
[2019-08-31 08:58] LABS: PH,URINE 6.5 (5.0-8.0); URINE APPEARANCE CLEAR; URINE BILIRUBIN 2+ (NEGATIVE); URINE COLOR DK YELLOW; URINE GLUCOSE (UA) NEGATIVE (NEGATIVE); URINE KETONE 2+ (NEGATIVE); URINE LEUK ESTERASE TRACE (NEGATIVE); URINE NITRITE NEGATIVE (NEGATIVE); URINE PROTEIN NEGATIVE (NEGATIVE)
[2019-08-31 09:32] LABS: INR 1.27 (0.83-1.09)
[2019-08-31 09:35] LABS: ALBUMIN 2.8 g/dl (3.4-5.0); BILIRUBIN,DIRECT 1.1 mg/dL (0.0-0.2); BILIRUBIN,TOTAL 1.7 mg/dL (0.2-1); BLOOD UREA NITROGEN 8.8 mg/dL (7-18); CALCIUM 8.1 mg/dL (8.5-10.1); CREATININE 0.5 mg/dL (0.55-1.3); POTASSIUM 3.5 mmol/L (3.5-5.1); TOT PROT 6.1 g/dl (6.4-8.2)
[2019-08-31] MEDS ORDERED: MIDAZOLAM HCL 2 MG/2 ML SINGLE DOSE VIAL ONE (10:12)
[2019-08-31] MEDS ORDERED: INDOMETHACIN 50 MG RECTAL SUPPOSITORY PR ONE ×3 (10:21→11:00)
[2019-08-31 10:45] LABS: BASO % 0.3 % (0-2.0); EOS % 0.4 % (0-4.5); HEMATOCRIT 32.2 % (32.4-45.2); HEMOGLOBIN 10.3 GM/dL (10.7-15.3); LYMPH % 11.7 % (8-40); MCH 27.8 pg (25.7-33.7); MEAN CELL VOLUME 86.8 fl (80-96); MEAN PLT VOLUME 9.6 fl (7.5-11.1); MONO % 5.6 % (3.8-10.2); PLATELET COUNT 246 K/MM3 (134-434); RBC 3.71 M/mm3 (3.60-5.2); RDW 14.7 % (11.6-15.6); WHITE BLOOD COUNT 15.1 K/mm3 (4.0-10.0)
[2019-08-31] MEDS ORDERED: IOHEXOL 300 MG/ML INFUS..BTL IV ONE ×2 (10:46)
--- NOTE | 2019-08-31 11:23 | PN ---
Progress Note (short form) - Note Progress Note: GI Procedure NOte; Please see ERCP report. After informed consent was obtained using a staff lang interpreter that included informing the patient about the risks of hemorrhage, perforation and worsening of pancreatitis which could lead to multiorgan failure ERCP was performed. After a sphincterotomy was created 8 stones were removed from the CBD until no residual stones could be found. Brisk IV hydration with Ringer's lactate will be given. Please avoid all anticoagulants. Chandrika will ultimately need a cholecystectomy or this will recur. She was informed of this before the procedure.
[2019-08-31] MEDS ORDERED: LACTATED RINGERS SOLUTION 1,000 ML/1,000 ML INFUS.BAG IV SCH ×2 (11:30→17:30)
--- NOTE | 2019-08-31 13:01 | CONSULT ---
- Consultation REQUESTING PROVIDER: CONSULT REQUEST: We have been asked to surgically evaluate this patient for gallstone pancreatitis. PCP:DURAN Wheat HISTORY OF PRESENT ILLNESS: 33 y/o F, no significant pmh, presented to the ED c/ o of constant, 05/15, abdominal pain of 1 day duration that started postprandial after she ate some spicy food, associated with nausea and 6 episodes of nbnb vomiting. As per pt, she began to have the pain a couple of hours after her meal , which has worsened since onset, w/ no relief with pain meds. She reports that she has never had similar symptoms in the past. Her last BM was yesterday morning and she usually has constipation. On admission, LFT's were elevated and Lipase was 7054 w/ a WBC of 28,000. Pt was taken for MRCP and started on Zosyn. She is currently s/p ERCP with sphincterotomy and removal of 8 stones. She has minimal abdominal pain and denies any nausea, fever.CP, SOB, or diarrhea. Past History Allergies/Adverse Reactions: Allergies Allergy/AdvReac Type Severity Reaction Status Date / Time No Known Allergies Allergy Verified 08/30/19 12:33 Home Medications: Ambulatory Orders NK [No Known Home Medication] 08/30/19 Asthma: No Cancer: No Cardiac Disorders: No COPD: No Diabetes: No HTN: No Seizures: No Thyroid Disease: No - Surgical History Abdominal Surgery: No Appendectomy: No Cholecystectomy: No GI Surgery: No - Psycho Social/Smoking Cessation Hx Smoking History: Never smoked Have you smoked in the past 12 months: No Hx Alcohol Use: No Drug/Substance Use Hx: No Hx Substance Use Treatment: No Review of Systems - Review of Systems Able to Perform ROS?: Yes Constitutional: Symptoms Reported above, Weight Stable. No: Chills, Diaphoresis, Fever HEENTM:No: Blurred Vision Respiratory: No: Cough, Orthopnea, Shortness of Breath, Wheezing, Productive cough Cardiac (ROS): No: Chest Pain, Edema, Irregular Heart Rate, Chest Tightness ABD/GI: + Constipated, Nausea, Vomiting, Indigestion. No: Abdominal Distended , Diarrhea : No: Burning Musculoskeletal: No: Back Pain Neurological: No: Headache, Numbness, Paresthesia *Physical Exam - Vital Signs Last Vital Signs Temp Pulse Resp BP Pulse Ox 98 F 77 18 140/82 99 08/30/19 12:31 08/30/19 12:31 08/30/19 12:31 08/30/19 12:31 08/30/19 12:31 - Physical Exam General Appearance: Yes: Nourished, Appropriately Dressed, Apparent Distress, Obese HEENT: sclera antiicteric, Normal Voice, Neck: positive: Trachea midline Respiratory/Chest: Unlabored resp on RA, no accessory muscle use Vascular Pulses: Dorsalis-Pedis (R): 2+, Doralis-Pedis (L): 2+ Gastrointestinal/Abdominal: positive: obese, +Rebound, + TTP throughout upper quadrants. no masses or organomegaly, no rashes or lesions. Neurologic: positive: Fully Oriented, Alert, Normal Mood/Affect Vital Signs Temperature 98 F 08/31/19 11:15 Pulse Rate 69 08/31/19 12:15 Respiratory Rate 16 08/31/19 12:15 Blood Pressure 106/52 L 08/31/19 12:15 O2 Sat by Pulse Oximetry (%) 100 08/31/19 12:15 Lab Results WBC 15.1 K/mm3 (4.0-10.0) H 08/31/19 08:26 RBC 3.71 M/mm3 (3.60-5.2) 08/31/19 08:26 Hgb 10.3 GM/dL (10.7-15.3) L 08/31/19 08:26 Hct 32.2 % (32.4-45.2) L 08/31/19 08:26 MCV 86.8 fl (80-96) 08/31/19 08:26 MCHC 32.0 g/dl (32.0-36.0) 08/31/19 08:26 RDW 14.7 % (11.6-15.6) 08/31/19 08:26 Plt Count 246 K/MM3 (134-434) D 08/31/19 08:26 Sodium 142 mmol/L (136-145) 08/31/19 08:28 Potassium 3.5 mmol/L (3.5-5.1) 08/31/19 08:28 Chloride 114 mmol/L (98-107) H 08/31/19 08:28 Carbon Dioxide 21 mmol/L (21-32) 12/27/19 08:28 Anion Gap 7 MMOL/L (8-16) L 08/31/19 08:28 BUN 8.8 mg/dL (7-18) 08/31/19 08:28 Creatinine 0.5 mg/dL (0.55-1.3) L 08/31/19 08:28 Random Glucose 87 mg/dL (74-106) 08/31/19 08:28 Calcium 8.1 mg/dL (8.5-10.1) L 08/31/19 08:28 Blood Type O POSITIVE 08/30/19 18:20 Antibody Screen Positive 08/30/19 18:20 INR 1.27 (0.83-1.09) H 08/31/19 08:28 Problem List - Problems (1) Pancreatitis, gallstone Assessment/Plan: 33 yo with gallstone pancreatitis now s/p ERCP with shpincterotomy and stone extraction. Patient will need cholecystectomy once labs trend down. Patient states she understands. -Continue NPO -Trend daily Labs - IVF and ABX per medicine -OOB as tolerated -pain control -Surgical plan pending for lap cholecystectomy. Evaluation and plan discussed with Dr Mcdermott. Code(s): K85.10 - BILIARY ACUTE PANCREATITIS WITHOUT NECROSIS OR INFECTION
--- NOTE | 2019-08-31 14:01 | PN ---
Progress Note (short form) - Note Progress Note: ID consult dictated imp/reccd 33 yo female admitted from home with acute onset of abdominal pain with nausea and vomiting for 24 hours, +chills with vomiting similar episode one year ago that resolved on its own no meds at home found to have abnormal LFTS, wbc of 28k, pancreatitis and MRCP with choledocholithiasis s/p ERCP today, sphincterotomy and 8 stones were removed she is resting comfortably with diminished abdominal pain biliary sepsis, s/p ercp for choledocholithiasis gallstone pancreatitis will need cholycystectomy continue zosyn, f/u cultures surgery to see Problem List - Problems (1) Biliary sepsis Code(s): K83.09 - OTHER CHOLANGITIS (2) Choledocholithiasis Code(s): K80.50 - CALCULUS OF BILE DUCT W/O CHOLANGITIS OR CHOLECYST W/O OBST (3) Pancreatitis, gallstone Code(s): K85.10 - BILIARY ACUTE PANCREATITIS WITHOUT NECROSIS OR INFECTION
[2019-08-31 15:52] LABS: BASO % 0.2 % (0-2.0); EOS % 0.1 % (0-4.5); HEMATOCRIT 32.8 % (32.4-45.2); HEMOGLOBIN 10.8 GM/dL (10.7-15.3); LYMPH % 6.6 % (8-40); MCH 28.4 pg (25.7-33.7); MEAN CELL VOLUME 86.1 fl (80-96); MEAN PLT VOLUME 9.4 fl (7.5-11.1); MONO % 1.7 % (3.8-10.2); NEUT % 91.4 % (42.8-82.8); PLATELET COUNT 271 K/MM3 (134-434); RBC 3.81 M/mm3 (3.60-5.2); RDW 14.3 % (11.6-15.6); WHITE BLOOD COUNT 15.7 K/mm3 (4.0-10.0)
[2019-08-31] MEDS ORDERED: DEXTROSE 5%-WATER 100 ML IVPB ONE (16:15)
[2019-08-31] MEDS ORDERED: PIPERACILLIN/TAZOBACTAM 4.5 GM VIAL IVPB ONE (16:15)
[2019-08-31] MEDS: PIPERACILLIN/TAZOB 4.5 GM 4.5 GM in DEXTROSE 5%-WATER 100 ML IVPB SCH (17:20)
[2019-08-31] MEDS ORDERED: PIPERACILLIN/TAZOB 2.25 GM 2.25 GM in DEXTROSE 5%-WATER - 50 ML IVPB SCH (18:00)
--- NOTE | 2019-08-31 18:56 | CONS ---
INFECTIOUS DISEASE CONSULTATION DATE OF CONSULTATION: DATE OF DICTATION: 08/31/2019 REQUESTING PHYSICIAN: Hospitalist service HISTORY: This is a 33-year-old woman. She is admitted from home. She presents to the ER with acute onset of upper abdominal pain with nausea and vomiting after she had a spicy meal at home. There was no hematemesis. She reports having had similar symptoms to this 1 year ago at which time she took some Pepto Bismol, and it resolved. This time the symptoms persisted, and she came to the ER. She denies any fever, but she notes she had chills with the vomiting. In the ER, she had elevated liver enzymes, lipase over 7000, white count 28.9, and a bilirubin of 3.1. She had an MRCP that was notable for choledocholithiasis. She was given Zosyn in the ER. I am asked to see her for further antibiotic recommendations. She has just returned from ERCP. She underwent sphincterotomy and had 8 stones removed. She reports less abdominal pain that she is quite a bit more comfortable at this time. PAST MEDICAL HISTORY: Notable for childbirth. She has 4 children the last 2 of which were C sections. SOCIAL HISTORY: She lives in the community. No history of cigarette, alcohol, or substance use. She is from [place]. FAMILY HISTORY: There is no family history of gallbladder disease. ALLERGIES: She has no known allergies. MEDICATIONS: She takes no medications. REVIEW OF SYSTEMS: She denies any chest pain. Her abdominal pain is much improved, and she has no cough or shortness of breath. PHYSICAL EXAMINATION: Vital Signs: Temperature 98, pulse 69, blood pressure 106/52, respiratory rate 16. She is saturating 100% on room air. HEENT: She is normocephalic. Her eyes are not icteric. She has no thrush or pharyngitis. Neck: Supple. Heart: Regular rate and rhythm. Lungs: Clear to auscultation. Abdomen: Soft. She has minimal mid epigastric discomfort. She has no right upper quadrant pain. Extremities: She has no distention. Without edema. Skin: She has no rash. DIAGNOSTIC DATA: White count on admission was 28.9, repeat of 15.1 this morning, hemoglobin 10.3, platelets 246. Her BUN 8, creatinine 0.5. LFTs have improved. Bilirubin has gone from 3.7 to 1.7. AST from 430 to 122. ALT of 417 to 242. Her lipase was 7000 yesterday. test is negative. Urinalysis is leukocyte esterase trace. Urine and blood cultures are pending. Imaging is as previously stated. Chest x-ray is clear. In summary, this is a young lady admitted with biliary sepsis, choledocholithiasis on gallstone pancreatitis who is doing well after ERCP today. Would continue Zosyn. Follow up cultures. Surgery to see for interval cholecystectomy. Further recommendations to follow. Rivka [id number]
[2019-08-31 19:06] LABS: MACROCYTOSIS 1+
[2019-08-31 21:57] LABS: HYALINE CASTS 0 /lpf (0-8); URINE BACTERIA 0 /hpf (NEGATIVE); YEAST FEW (NEGATIVE)
[2019-08-31 22:00] LABS: EPI CELLS 0-3 /HPF (0-5/HPF); URINE RBC 0-2 /hpf (0-4); URINE WBC 0-3 /hpf (0-5)
[2019-09-01] MEDS ORDERED: LACTATED RINGERS SOLUTION 1,000 ML/1,000 ML INFUS.BAG IV SCH ×2 (00:30→08:30)
[2019-09-01] MEDS ORDERED: DEXTROSE 5%-WATER 100 ML IVPB ONE ×3 (01:14→17:05)
[2019-09-01] MEDS ORDERED: PIPERACILLIN/TAZOBACTAM 4.5 GM VIAL IVPB ONE ×3 (01:14→17:05)
[2019-09-01] MEDS: PIPERACILLIN/TAZOB 4.5 GM 4.5 GM in DEXTROSE 5%-WATER 100 ML IVPB SCH ×3 (01:18→17:25)
[2019-09-01 07:14] LABS: BASO % 0.5 % (0-2.0); EOS % 0.3 % (0-4.5); HEMATOCRIT 30.3 % (32.4-45.2); HEMOGLOBIN 9.8 GM/dL (10.7-15.3); LYMPH % 17.7 % (8-40); MCH 27.9 pg (25.7-33.7); MCHC 32.5 g/dl (32.0-36.0); MEAN CELL VOLUME 85.7 fl (80-96); MEAN PLT VOLUME 8.8 fl (7.5-11.1); NEUT % 75.5 % (42.8-82.8); PLATELET COUNT 266 K/MM3 (134-434); RBC 3.53 M/mm3 (3.60-5.2); RDW 14.4 % (11.6-15.6); WHITE BLOOD COUNT 12.9 K/mm3 (4.0-10.0)
[2019-09-01 07:29] LABS: INR 1.08 (0.83-1.09); PROTHROMBIN TIME (PATIENT) 12.7 SEC (9.7-13.0)
[2019-09-01 08:10] LABS: ALBUMIN 2.7 g/dl (3.4-5.0); BILIRUBIN,TOTAL 0.7 mg/dL (0.2-1); BLOOD UREA NITROGEN 7.3 mg/dL (7-18); CALCIUM 8.5 mg/dL (8.5-10.1); CREATININE 0.6 mg/dL (0.55-1.3); MAGNESIUM 2.3 mg/dL (1.8-2.4); POTASSIUM 3.5 mmol/L (3.5-5.1)
--- NOTE | 2019-09-01 11:29 | PN.GI ---
GI Progress Note Subjective: No acute events Minimal abdominal pain S/P ERCP yesterday with extraction of multiple CBD stones - Objective Vital Signs: Vital Signs Temperature 98.6 F 09/01/19 07:31 Pulse Rate 61 09/01/19 07:31 Respiratory Rate 20 09/01/19 07:31 Blood Pressure 113/59 L 09/01/19 07:31 O2 Sat by Pulse Oximetry (%) 100 08/31/19 20:36 Constitutional: Calm Eyes: No: Sclera Icterus Cardiovascular: Yes: Regular Rate and Rhythm. No: Murmur Respiratory: Yes: CTA Bilaterally Gastrointestinal Inspection: No: Scars ...Auscultate: Yes: Normoactive Bowel Sounds ...Palpate: No: Hepatomegaly, Soft, Splenomegaly, Tenderness ...Percussion: No: Tympanitic Edema: No (No LE edema) Neurological: Yes: Alert Labs: CBC, BMP 09/01/19 06:45 09/01/19 06:45 INR, PTT INR 1.08 (0.83-1.09) 09/01/19 06:45 Hepatic Panel Total Bilirubin 0.7 mg/dL (0.2-1) 09/01/19 06:45 Direct Bilirubin 1.1 mg/dL (0.0-0.2) H 08/31/19 08:28 AST 52 U/L (15-37) H 09/01/19 06:45 ALT 175 U/L (13-61) H 09/01/19 06:45 Alkaline Phosphatase 205 U/L (45-117) H 09/01/19 06:45 Albumin 2.7 g/dl (3.4-5.0) L 09/01/19 06:45 Problem List - Problems (1) Pancreatitis, gallstone Assessment/Plan: S/P ERCP with sphincterotomy and CBD stone extreaction: Clinically doing well with downtrending LFTs Continue to monitor No need for continued abx from GI standpoint. No clinical / radiographic evidence of cholecystitis and duct has been cleared IV hydration Clear diet Code(s): K85.10 - BILIARY ACUTE PANCREATITIS WITHOUT NECROSIS OR INFECTION (2) Ureteral dilatation Assessment/Plan: right ureter dilated on MRCP. Further evaluation per primary team Code(s): N28.82 - MEGALOURETER
--- NOTE | 2019-09-01 12:52 | CONS ---
DATE OF CONSULTATION: 09/01/2019 REASON FOR CONSULTATION: Choledocholithiasis, pancreatitis, cholelithiasis. This is an inpatient consultation. BRIEF HISTORY: This is a 33-year-old female, morbidly obese, presented to [facility] with choledocholithiasis as well as pancreatitis. She underwent an ERCP with extraction of 8 gallstones. Her liver function tests have improved; however, she still has some mild elevation and she still appears to have some clinical jaundice. Request was made for surgical evaluation for a possible cholecystectomy this admission. PAST MEDICAL HISTORY: Negative. PAST SURGICAL HISTORY: Includes section and tubal ligation. SOCIAL HISTORY: Negative for alcohol, negative for tobacco. MEDICATIONS: She takes no medications. REVIEW OF SYSTEMS: General: Denies fatigue and malaise. Cardiac: Denies chest pain or palpitations. Respiratory: No shortness of breath or wheeze. Gastrointestinal: Currently is asymptomatic and tolerating clear liquids with only a sore throat. She did have nausea and vomiting. Genitourinary: Denies dysuria. Musculoskeletal: Denies joint pain. Psychiatric: Denies anxiety, depression, hearing voices. PHYSICAL EXAMINATION: General: This is a morbidly obese 33-year-old female in no distress. Vital Signs: She is currently afebrile and has been this admission. HEENT: Her head is normocephalic. Her sclerae still appear to be icteric despite a now current normal bilirubin level. Neck: Supple. Chest: Clear. Abdomen: Obese. It is soft. There is mild fullness in the epigastrium. There is a well-healed Pfannenstiel incision. I do not see a scar from her tubal ligation. She has no obvious hernias. Exam is limited by obesity. Extremities: Have trace edema. LABORATORY: Her white blood cell count is still elevated at 12.9. It was 28.9 on admission. Her chemistries show a bilirubin that is now normal. It was 3.7 on admission. Her AST is 52, down from 430. Her ALT is 175, down from 417. Her alkaline phosphatase is 205, down from 275. Her C-reactive protein remains elevated at 6.8, which is almost 20 times normal range. Her amylase is 140. Her lipase is 1629, which is down from 7054. IMAGING: She had an MRCP on August 30 which showed gallstones. It showed choledocholithiasis. It showed acute pancreatitis. The pancreas is described as having peripancreatic fluid extending inferiorly along the retroperitoneum consistent with acute pancreatitis. There was no evidence of necrosis or thrombosis. ASSESSMENT: This is a 33-year-old female, morbidly obese, with biliary pancreatitis and choledocholithiasis. She has had an endoscopic retrograde cholangiopancreatography, sphincterotomy, and stone extraction. Her liver function tests are improving, as well as her amylase and lipase as well as her symptoms. Her MRI did show an impressive pancreatitis. Clinically, this appears to be much better, but her examination is limited by obesity. At this point it would be optimal to proceed with cholecystectomy prior to discharge. It would be best to give a good amount of time for her pancreatitis to fully resolve to decrease intraoperative morbidity. Since her examination is limited by obesity, I will be relying on laboratories. I would expect this to take another 2-3 days before she is ready for surgery. Another consideration is that since there were so many stones present, the patient is at risk of developing primary duct stones in the future. Some would consider doing a hepaticojejunostomy instead of a simple cholecystectomy. Essentially, will proceed with cholecystectomy as this is the simpler option. Obviously, she may be at risk of developing primary duct stones in the future, and she may need to go on lifelong ursodiol or be evaluated by Hepatobiliary Surgery if that occurs. I believe it is reasonable to proceed with simple cholecystectomy in the hopes that this is a definitive cure. Patient is agreeable. Risks and benefits of surgery have been explained to the patient in detail. These are including but not limited to possibility of conversion to open, the possibility of common bile duct injury, possibility of injury to viscera, possibility of blood loss requiring blood transfusion, possibility of future hernia, possibility of future obstruction plus multiple medical risks including but not limited to cardiac, neurologic, pulmonary, and vascular complications, even . The patient also understands the risk of retained stones as well as developing primary stones. At this point will move in the direction of surgery when it is clinically appropriate. Patient is currently on Zosyn antibiotic. Recommendations by the gastroenterology team have been to stop that, so I assume that will be stopped by the medical team. She will need a prophylactic antibiotic prior to surgery, and the diet is currently clear liquids. It will be advanced by the medical team. Would avoid low fat diet. DO HSIRA ROY/[id number]
--- NOTE | 2019-09-01 15:21 | PN ---
Physical Exam: SUBJECTIVE: Patient seen and examined at the bedside. feels better, no abdominal pain. OBJECTIVE: S/P ERCP with removal of stones. Mild abdominal discomfort. Patient is a 33 year old female with two c - sections, last one 08/2018, otherwise, no significant past medical history and on no home medications. She presents to the ED on 08/30/19 with abdominal pain that is constant and radiates across her abdomen with associated nausea/vomiting after eating spicy pork, spicy foods and beans. Abdominal pain worsened since onset with no relief with pain medications or rest prompting an ED visit. On admission, labs significant for elevated AST/ALT, elevated lipase 7000s, WBC 28.9, bili 3.1 with sclera icterus. She is s/p ERCP with removal of stones. Vital Signs Period Temp Pulse Resp BP Sys/Coppola Pulse Ox Last 24 Hr 98 F-98.7 F 60-72 16-20 105-129/59-68 98-100 GENERAL: Awake, alert, and fully oriented, in no acute distress. mild jaundice HEAD: Normal with no signs of trauma. EYES: Pupils equal, round and reactive to light, extraocular movements intact, sclera anicteric, conjunctiva clear. No lid lag. EARS, NOSE, THROAT: Ears normal, nares patent, oropharynx clear without exudates. Moist mucous membranes. NECK: Normal range of motion, supple without lymphadenopathy, JVD, or masses. LUNGS: Breath sounds equal, clear to auscultation bilaterally. No wheezes, HEART: Regular rate and rhythm, ABDOMEN: tender, pain on light palpation of abdomen MUSCULOSKELETAL: No CVA tenderness. UPPER EXTREMITIES: No peripheral edema. LOWER EXTREMITIES: No peripheral edema. NEUROLOGICAL: Normal speech. Normal gait. PSYCHIATRIC: Cooperative. Good eye contact. Appropriate mood and affect. SKIN: Warm, dry, normal turgor, no rashes or lesions noted, normal capillary refill. Laboratory Results - last 24 hr 08/31/19 08/31/19 09/01/19 08:00 15:30 06:45 WBC 15.7 H RBC 3.81 Hgb 10.8 Hct 32.8 MCV 86.1 MCH 28.4 MCHC 33.0 RDW 14.3 Plt Count 271 MPV 9.4 Absolute Neuts (auto) 14.4 H Total Counted 100 Neutrophils % 91.4 H Neutrophils % (Manual) 90.0 H Band Neutrophils % 2.0 Lymphocytes % 6.6 L D Lymphocytes % (Manual) 6.0 L D Monocytes % 1.7 L Monocytes % (Manual) 1 L Eosinophils % 0.1 Eosinophils % (Manual) 1.0 D Basophils % 0.2 Nucleated RBC % 0 Differential Comment Man diff performed Polychromasia 1+ Macrocytosis 1+ PT with INR INR Sodium 140 Potassium 3.5 Chloride 111 H Carbon Dioxide 23 Anion Gap 7 L BUN 7.3 Creatinine 0.6 Est GFR (CKD-EPI)AfAm 140.77 Est GFR (CKD-EPI)NonAf 121.46 Random Glucose 101 Calcium 8.5 Magnesium 2.3 Total Bilirubin 0.7 AST 52 H ALT 175 H Alkaline Phosphatase 205 H C-Reactive Protein 6.8 H Total Protein 6.0 L Albumin 2.7 L Total Amylase 140 H Lipase 1629 H Urine WBC (Auto) 0-3 Urine RBC (Auto) 0-2 Urine Casts (Auto) 0 U Epithel Cells (Auto) 0-3 Urine Bacteria (Auto) 0 Urine Yeast (Auto) Few 09/01/19 09/01/19 06:45 06:45 WBC 12.9 H RBC 3.53 L Hgb 9.8 L Hct 30.3 L MCV 85.7 MCH 27.9 MCHC 32.5 RDW 14.4 Plt Count 266 MPV 8.8 Absolute Neuts (auto) 9.8 H Total Counted Neutrophils % 75.5 Neutrophils % (Manual) Band Neutrophils % Lymphocytes % 17.7 D Lymphocytes % (Manual) Monocytes % 6.0 D Monocytes % (Manual) Eosinophils % 0.3 D Eosinophils % (Manual) Basophils % 0.5 Nucleated RBC % 0 Differential Comment Polychromasia Macrocytosis PT with INR 12.70 INR 1.08 Sodium Potassium Chloride Carbon Dioxide Anion Gap BUN Creatinine Est GFR (CKD-EPI)AfAm Est GFR (CKD-EPI)NonAf Random Glucose Calcium Magnesium Total Bilirubin AST ALT Alkaline Phosphatase C-Reactive Protein Total Protein Albumin Total Amylase Lipase Urine WBC (Auto) Urine RBC (Auto) Urine Casts (Auto) U Epithel Cells (Auto) Urine Bacteria (Auto) Urine Yeast (Auto) Active Medications Generic Name Dose Route Start Last Admin Trade Name Freq PRN Reason Stop Dose Admin Piperacillin Sod/Tazobactam 100 mls @ 200 mls/hr 08/31/19 18:00 09/01/19 10: 00 Sod 4.5 gm/ Dextrose IVPB 200 mls/hr Q8H-IV NAIDA Administration Protocol Lactated Ringer's 1,000 ml in 1,000 mls @ 125 mls/hr 09/01/19 15:20 Lactated Ringers Solution IV ASDIR NAIDA Ondansetron HCl 4 mg 08/30/19 18:40 Zofran Injection IVPUSH Q8H PRN NAUSEA ASSESSMENT/PLAN: Problem List - Problems (1) Leukocytosis Assessment/Plan: improving. WBC 28>15 On zosyn s/p ERCP c/w zosyn f/u cx appreciate ID consultation planned cholecyctectomy on continue to monitor Code(s): D72.829 - ELEVATED WHITE BLOOD CELL COUNT, UNSPECIFIED (2) Pancreatitis, gallstone Assessment/Plan: resolving s/p ERCP with shpincterotomy and stone extraction planned cholecysctomy on tue Code(s): K85.10 - BILIARY ACUTE PANCREATITIS WITHOUT NECROSIS OR INFECTION (3) Abdominal pain Assessment/Plan: improving and tolerating diet Code(s): R10.9 - UNSPECIFIED ABDOMINAL PAIN (4) Scleral icterus Assessment/Plan: bilirubin trending down s/p ercp with stone extraction, mild scleral icterus and generalized jaundice Code(s): R17 - UNSPECIFIED JAUNDICE (5) Prophylactic measure Assessment/Plan: fen LR @ 125cc /hr monitor electrolytes clears full code Code(s): Z29.9 - ENCOUNTER FOR PROPHYLACTIC MEASURES, UNSPECIFIED Visit type - Emergency Visit Emergency Visit: Yes ED Registration Date: 08/30/19 Care time: The patient presented to the Emergency Department on the above date and was hospitalized for further evaluation of their emergent condition. - New Patient This patient is new to me today: No - Critical Care Critical Care patient: No - Discharge Referral Referred to [facility] Med P.C.: No
[2019-09-01] MEDS: LACTATED RINGERS SOLUTION 1,000 ML/1,000 ML INFUS.BAG IV SCH (15:30)
[2019-09-02] MEDS ORDERED: PIPERACILLIN/TAZOBACTAM 4.5 GM VIAL IVPB ONE ×2 (00:15→09:15)
[2019-09-02] MEDS ORDERED: DEXTROSE 5%-WATER 100 ML IVPB ONE ×2 (00:15→09:15)
[2019-09-02] MEDS: PIPERACILLIN/TAZOB 4.5 GM 4.5 GM in DEXTROSE 5%-WATER 100 ML IVPB SCH ×2 (01:07→09:27)
[2019-09-02 07:31] LABS: BASO % 0.5 % (0-2.0); EOS % 2.4 % (0-4.5); HEMATOCRIT 30.4 % (32.4-45.2); HEMOGLOBIN 10.1 GM/dL (10.7-15.3); LYMPH % 35.5 % (8-40); MCH 28.4 pg (25.7-33.7); MCHC 33.2 g/dl (32.0-36.0); MEAN CELL VOLUME 85.6 fl (80-96); MEAN PLT VOLUME 8.3 fl (7.5-11.1); MONO % 6.4 % (3.8-10.2); NEUT % 55.2 % (42.8-82.8); PLATELET COUNT 279 K/MM3 (134-434); RBC 3.56 M/mm3 (3.60-5.2); RDW 14.4 % (11.6-15.6); WHITE BLOOD COUNT 9.9 K/mm3 (4.0-10.0)
[2019-09-02 07:54] LABS: ALBUMIN 2.8 g/dl (3.4-5.0); BILIRUBIN,TOTAL 0.7 mg/dL (0.2-1); BLOOD UREA NITROGEN 6.6 mg/dL (7-18); CALCIUM 8.5 mg/dL (8.5-10.1); CREATININE 0.6 mg/dL (0.55-1.3); POTASSIUM 3.4 mmol/L (3.5-5.1); TOT PROT 6.1 g/dl (6.4-8.2)
[2019-09-02] MEDS ORDERED: POTASSIUM CHLORIDE TABS 20 MEQ TABLET.ER (FP) PO ONE (07:57)
[2019-09-02] MEDS: LACTATED RINGERS SOLUTION 1,000 ML/1,000 ML INFUS.BAG IV SCH (09:28)
--- NOTE | 2019-09-02 10:11 | PN.GI ---
GI Progress Note Subjective: No acuute events No abdominal pain Tolerating clears - Objective Vital Signs: Vital Signs Temperature 98 F 09/02/19 04:00 Pulse Rate 62 09/02/19 04:00 Respiratory Rate 16 09/02/19 04:00 Blood Pressure 117/52 L 09/02/19 04:00 O2 Sat by Pulse Oximetry (%) 98 09/01/19 21:00 Constitutional: Calm Eyes: No: Sclera Icterus Cardiovascular: Yes: Regular Rate and Rhythm Respiratory: Yes: CTA Bilaterally Gastrointestinal Inspection: No: Distention ...Auscultate: No: Normoactive Bowel Sounds ...Palpate: Yes: Soft. No: Hepatomegaly, Splenomegaly, Tenderness Edema: No (No LE edema) Neurological: Yes: Alert Labs: CBC, BMP 09/02/19 06:43 09/02/19 06:43 INR, PTT INR 1.08 (0.83-1.09) 09/01/19 06:45 Problem List - Problems (1) Pancreatitis, gallstone Assessment/Plan: S/P ERCP with extraction of multiple CBD stones and sphincterotomy Clinically much improved and liver chemistries normalizing Stopped IV fluids. Tolerating clears Can stop IV Abx from GI standpoint Monitor LFTs Timing of Lap Leonarda per surgery Code(s): K85.10 - BILIARY ACUTE PANCREATITIS WITHOUT NECROSIS OR INFECTION (2) Ureteral dilatation Code(s): N28.82 - MEGALOURETER
--- NOTE | 2019-09-02 12:09 | PN ---
Progress Note (short form) - Note Progress Note: no complaints eating no abd pain no vomiting no fever Vital Signs Period Temp Pulse Resp BP Sys/Coppola Pulse Ox Last 24 Hr 98 F-98.1 F 60-63 16-18 105-117/52-64 98 cor-rrr lungs clear abd soft,nt ext no edema CBC, BMP 09/02/19 06:43 09/02/19 06:43 Microbiology 08/30/19 13:12 Blood - Peripheral Venous Blood Culture - Preliminary NO GROWTH OBTAINED AFTER 24 HOURS, INCUBATION TO CONTINUE FOR 4 DAYS. 08/30/19 13:20 Blood - Peripheral Venous Blood Culture - Preliminary NO GROWTH OBTAINED AFTER 24 HOURS, INCUBATION TO CONTINUE FOR 4 DAYS. 08/31/19 08:00 Urine - Urine Clean Catch Urine Culture - Final NO GROWTH OBTAINED a/p s/p ercp for choledocholithiasis gallstone pancreatitis will need cholycystectomy d/c zosyn further evaluation per surgery please call back if needed Problem List - Problems (1) Biliary sepsis Code(s): K83.09 - OTHER CHOLANGITIS (2) Choledocholithiasis Code(s): K80.50 - CALCULUS OF BILE DUCT W/O CHOLANGITIS OR CHOLECYST W/O OBST (3) Pancreatitis, gallstone Code(s): K85.10 - BILIARY ACUTE PANCREATITIS WITHOUT NECROSIS OR INFECTION
--- NOTE | 2019-09-02 12:48 | PN ---
Physical Exam: SUBJECTIVE: Patient seen and examined at the bedside. offers no complaints or discomfort. OBJECTIVE: S/P ERCP with removal of stones. Mild abdominal discomfort. Patient is a 33 year old female with two c - sections, last one 08/2018, otherwise, no significant past medical history and on no home medications. She presents to the ED on 08/30/19 with abdominal pain that is constant and radiates across her abdomen with associated nausea/vomiting after eating spicy pork, spicy foods and beans. Abdominal pain worsened since onset with no relief with pain medications or rest prompting an ED visit. On admission, labs significant for elevated AST/ALT, elevated lipase 7000s, WBC 28.9, bili 3.1 with sclera icterus. She is s/p ERCP with removal of stones. Seen by surgery, lap peggy surgical intervention within next 24-48 hrs per surgery. Vital Signs Period Temp Pulse Resp BP Sys/Coppola Pulse Ox Last 24 Hr 98 F-98.1 F 60-63 16-18 105-117/52-64 98 GENERAL: Awake, alert, and fully oriented, in no acute distress. mild jaundice HEAD: Normal with no signs of trauma. EYES: Pupils equal, round and reactive to light, extraocular movements intact, sclera anicteric, conjunctiva clear. No lid lag. EARS, NOSE, THROAT: Ears normal, nares patent, oropharynx clear without exudates. Moist mucous membranes. NECK: Normal range of motion, supple without lymphadenopathy, JVD, or masses. LUNGS: Breath sounds equal, clear to auscultation bilaterally. No wheezes, HEART: Regular rate and rhythm, ABDOMEN: tender, pain on light palpation of abdomen MUSCULOSKELETAL: No CVA tenderness. UPPER EXTREMITIES: No peripheral edema. LOWER EXTREMITIES: No peripheral edema. NEUROLOGICAL: Normal speech. Normal gait. PSYCHIATRIC: Cooperative. Good eye contact. Appropriate mood and affect. SKIN: Warm, dry, normal turgor, no rashes or lesions noted, normal capillary refill. Laboratory Results - last 24 hr 09/02/19 09/02/19 06:43 06:43 WBC 9.9 RBC 3.56 L Hgb 10.1 L Hct 30.4 L MCV 85.6 MCH 28.4 MCHC 33.2 RDW 14.4 Plt Count 279 MPV 8.3 Absolute Neuts (auto) 5.5 Neutrophils % 55.2 D Lymphocytes % 35.5 D Monocytes % 6.4 Eosinophils % 2.4 D Basophils % 0.5 Nucleated RBC % 0 Sodium 139 Potassium 3.4 L Chloride 109 H Carbon Dioxide 25 Anion Gap 5 L BUN 6.6 L Creatinine 0.6 Est GFR (CKD-EPI)AfAm 140.77 Est GFR (CKD-EPI)NonAf 121.46 Random Glucose 86 Calcium 8.5 Total Bilirubin 0.7 AST 23 ALT 132 H Alkaline Phosphatase 187 H Total Protein 6.1 L Albumin 2.8 L Active Medications Generic Name Dose Route Start Last Admin Trade Name Freq PRN Reason Stop Dose Admin Ondansetron HCl 4 mg 08/30/19 18:40 Zofran Injection IVPUSH Q8H PRN NAUSEA ASSESSMENT/PLAN: Problem List - Problems (1) Leukocytosis Assessment/Plan: resolved. WBC 28>9.9. s/p ERCP antibiotics discontinued appreciate ID consultation planned lap peggy in next 24-48 hours per surgery note continue to monitor Code(s): D72.829 - ELEVATED WHITE BLOOD CELL COUNT, UNSPECIFIED (2) Pancreatitis, gallstone Assessment/Plan: resolving s/p ERCP with shpincterotomy and stone extraction Code(s): K85.10 - BILIARY ACUTE PANCREATITIS WITHOUT NECROSIS OR INFECTION (3) Abdominal pain Assessment/Plan: improving and tolerating diet Code(s): R10.9 - UNSPECIFIED ABDOMINAL PAIN (4) Scleral icterus Assessment/Plan: bilirubin trending down s/p ercp with stone extraction, mild scleral icterus and generalized jaundice Code(s): R17 - UNSPECIFIED JAUNDICE (5) Prophylactic measure Assessment/Plan: fen LR @ 125cc /hr monitor electrolytes fat controlled diet full code Code(s): Z29.9 - ENCOUNTER FOR PROPHYLACTIC MEASURES, UNSPECIFIED (6) Morbid obesity Assessment/Plan: dietary consulted Code(s): E66.01 - MORBID (SEVERE) OBESITY DUE TO EXCESS CALORIES Visit type - Emergency Visit Emergency Visit: Yes ED Registration Date: 08/30/19 Care time: The patient presented to the Emergency Department on the above date and was hospitalized for further evaluation of their emergent condition. - New Patient This patient is new to me today: No - Critical Care Critical Care patient: No - Discharge Referral Referred to [facility] Med P.C.: No
--- NOTE | 2019-09-02 16:18 | PN ---
Progress Note (short form) - Note Progress Note: surgery pt seen and examined. feels well. afebrile abd- soft, nt, Laboratory Tests 09/02/19 09/02/19 06:43 06:43 WBC 9.9 Total Bilirubin 0.7 AST 23 ALT 132 H Alkaline Phosphatase 187 H Plan- clinically improving although exam is limited by morbid obesity. can advance to low fat diet. if tolerates can plan for surgery in next 24-48 hours
--- NOTE | 2019-09-03 08:41 | PN ---
Progress Note (short form) - Note Progress Note: Pt seen and examined. Reports no abdominal pain this AM. Tolerating low fat diet , no n/v. Had Bm yesterday, reports diarrhea. Has been oob without issue. Ambulating. Voiding without issue. Denies cp/sob. Vital Signs Temp 98.4 F 09/03/19 06:00 Pulse 71 09/03/19 06:00 Resp 20 09/03/19 06:00 BP 108/66 09/03/19 06:00 Pulse Ox 97 09/02/19 21:00 Intake & Output 09/02/19 09/02/19 09/03/19 11:59 23:59 11:59 Intake Total 1840 1390 480 Balance 1840 1390 480 Weight 250 lb Intake: IV 1500 850 LACTATED RINGERS SOLUTION 1500 1,000 ml In 1,000 ml @ 125 mls/hr IV ASDIR NAIDA Rx#:[id number] S/L 850 IVPB 100 100 Oral 240 440 480 Other: Voiding Method Toilet Toilet # Unmeasured Voids Void 2 2 2 Bowel Movement No Height 5 ft 2 in Body Mass Index (BMI) 45.7 CBC, BMP 09/02/19 06:43 09/02/19 06:43 Hepatic Panel Total Bilirubin 0.7 mg/dL (0.2-1) 09/02/19 06:43 Direct Bilirubin 1.1 mg/dL (0.0-0.2) H 08/31/19 08:28 AST 23 U/L (15-37) 09/02/19 06:43 ALT 132 U/L (13-61) H 09/02/19 06:43 Alkaline Phosphatase 187 U/L (45-117) H 09/02/19 06:43 Albumin 2.8 g/dl (3.4-5.0) L 09/02/19 06:43 A/P: 33 yo F w/ PMhx morbid obesity, admitted 08/30 with nausea/vomiting and abdominal pain, found to have gallstone pancreatitis now s/p ERCP with sphincterotomy and stone extraction on 08/31 Pain improved, labs trending down Plan for lap peggy tomorrow morning NPO after midnight Labs (cbc, chem, coags, t&s) d/w attending Dr Mcdermott
--- NOTE | 2019-09-03 10:35 | PN.GI ---
GI Progress Note Subjective: No abdominal pain. - Objective Vital Signs: Vital Signs Temperature 98.1 F 09/03/19 10:00 Pulse Rate 63 09/03/19 10:00 Respiratory Rate 18 09/03/19 10:00 Blood Pressure 130/72 09/03/19 10:00 O2 Sat by Pulse Oximetry (%) 95 09/03/19 10:00 Constitutional: Well Nourished, No Distress, Calm Eyes: No: Sclera Icterus Gastrointestinal Inspection: No: Distention ...Auscultate: Yes: Normoactive Bowel Sounds ...Palpate: No: Mass, Tenderness Labs: CBC, BMP 09/02/19 06:43 09/02/19 06:43 INR, PTT INR 1.08 (0.83-1.09) 09/01/19 06:45 Assessment/Plan Resolved choledochelithiasis with normal total bilirubin and downtrengind transaminases and alkaline phosphatase yesterday. For laparascopic cholecystectomy.
[2019-09-03 14:04] LABS: BASO % 0.6 % (0-2.0); EOS % 3.8 % (0-4.5); HEMATOCRIT 37.7 % (32.4-45.2); HEMOGLOBIN 12.3 GM/dL (10.7-15.3); LYMPH % 26.4 % (8-40); MCH 28.2 pg (25.7-33.7); MCHC 32.6 g/dl (32.0-36.0); MEAN CELL VOLUME 86.3 fl (80-96); MEAN PLT VOLUME 8.5 fl (7.5-11.1); MONO % 7.1 % (3.8-10.2); NEUT % 62.1 % (42.8-82.8); PLATELET COUNT 359 K/MM3 (134-434); RBC 4.37 M/mm3 (3.60-5.2); RDW 14.5 % (11.6-15.6); WHITE BLOOD COUNT 10.4 K/mm3 (4.0-10.0)
--- NOTE | 2019-09-03 14:11 | PN ---
Physical Exam: SUBJECTIVE: Patient seen and examined at the bedside. all questions answered, for lap peggy tomorrow. OBJECTIVE: Patient is a 33 year old female with two c - sections, last one 08/2018, otherwise, no significant past medical history and on no home medications. She presents to the ED on 08/30/19 with abdominal pain that is constant and radiates across her abdomen with associated nausea/vomiting after eating spicy pork, spicy foods and beans. Abdominal pain worsened since onset with no relief with pain medications or rest prompting an ED visit. On admission, labs significant for elevated AST/ALT, elevated lipase 7000s, WBC 28.9, bili 3.1 with sclera icterus. She is s/p ERCP with removal of stones. Seen by surgery, for laparascopic cholecystectomy tomorrow. npo at midnight. Vital Signs Period Temp Pulse Resp BP Sys/Coppola Pulse Ox Last 24 Hr 98.0 F-98.4 F 60-71 16-20 108-130/66-72 95-97 GENERAL: Awake, alert, and fully oriented, in no acute distress. mild jaundice HEAD: Normal with no signs of trauma. EYES: Pupils equal, round and reactive to light, extraocular movements intact, sclera anicteric, conjunctiva clear. No lid lag. EARS, NOSE, THROAT: Ears normal, nares patent, oropharynx clear without exudates. Moist mucous membranes. NECK: Normal range of motion, supple without lymphadenopathy, JVD, or masses. LUNGS: Breath sounds equal, clear to auscultation bilaterally. No wheezes, HEART: Regular rate and rhythm, ABDOMEN: tender, pain on light palpation of abdomen MUSCULOSKELETAL: No CVA tenderness. UPPER EXTREMITIES: No peripheral edema. LOWER EXTREMITIES: No peripheral edema. NEUROLOGICAL: Normal speech. Normal gait. PSYCHIATRIC: Cooperative. Good eye contact. Appropriate mood and affect. SKIN: Warm, dry, normal turgor, no rashes or lesions noted, normal capillary refill. Laboratory Results - last 24 hr 09/03/19 12:58 WBC 10.4 H RBC 4.37 Hgb 12.3 Hct 37.7 D MCV 86.3 MCH 28.2 MCHC 32.6 RDW 14.5 Plt Count 359 D MPV 8.5 Absolute Neuts (auto) 6.5 Neutrophils % 62.1 Lymphocytes % 26.4 D Monocytes % 7.1 Eosinophils % 3.8 Basophils % 0.6 Nucleated RBC % 0 Active Medications Generic Name Dose Route Start Last Admin Trade Name Freq PRN Reason Stop Dose Admin Ondansetron HCl 4 mg 08/30/19 18:40 Zofran Injection IVPUSH Q8H PRN NAUSEA ASSESSMENT/PLAN: Problem List - Problems (1) Leukocytosis Assessment/Plan: resolved. WBC 28>10.4 s/p ERCP antibiotics discontinued appreciate ID consultation planned lap peggy tomorrow continue to monitor Code(s): D72.829 - ELEVATED WHITE BLOOD CELL COUNT, UNSPECIFIED (2) Pancreatitis, gallstone Assessment/Plan: resolving s/p ERCP with shpincterotomy and stone extraction Code(s): K85.10 - BILIARY ACUTE PANCREATITIS WITHOUT NECROSIS OR INFECTION (3) Abdominal pain Assessment/Plan: improving and tolerating diet Code(s): R10.9 - UNSPECIFIED ABDOMINAL PAIN (4) Scleral icterus Assessment/Plan: bilirubin trending down s/p ercp with stone extraction, mild scleral icterus and generalized jaundice Code(s): R17 - UNSPECIFIED JAUNDICE (5) Prophylactic measure Assessment/Plan: fen LR @ 125cc /hr monitor electrolytes fat controlled diet full code Code(s): Z29.9 - ENCOUNTER FOR PROPHYLACTIC MEASURES, UNSPECIFIED (6) Morbid obesity Assessment/Plan: dietary consulted Code(s): E66.01 - MORBID (SEVERE) OBESITY DUE TO EXCESS CALORIES Visit type - Emergency Visit Emergency Visit: Yes ED Registration Date: 08/30/19 Care time: The patient presented to the Emergency Department on the above date and was hospitalized for further evaluation of their emergent condition. - New Patient This patient is new to me today: No - Critical Care Critical Care patient: No - Discharge Referral Referred to [facility] Med P.C.: No
[2019-09-03 14:27] LABS: ALBUMIN 3.3 g/dl (3.4-5.0); BILIRUBIN,TOTAL 0.5 mg/dL (0.2-1); BLOOD UREA NITROGEN 10.3 mg/dL (7-18); CALCIUM 9.3 mg/dL (8.5-10.1); CREATININE 0.8 mg/dL (0.55-1.3); MAGNESIUM 2.4 mg/dL (1.8-2.4); POTASSIUM 3.9 mmol/L (3.5-5.1); TOT PROT 7.3 g/dl (6.4-8.2)
[2019-09-04] MEDS ORDERED: fentaNYL CITRATE 250 MCG/5 ML VIAL ONE (07:27)
[2019-09-04] MEDS ORDERED: PROPOFOL 20 ML ONE (07:27)
[2019-09-04] MEDS ORDERED: DEXAMETHASONE SOD PHOSPHATE 4 MG/1 ML VIAL ONE (07:28)
[2019-09-04] MEDS ORDERED: MIDAZOLAM HCL 2 MG/2 ML SINGLE DOSE VIAL ONE (07:28)
[2019-09-04] MEDS ORDERED: ROCURONIUM BROMIDE 50 MG/5 ML SYRINGE ONE (07:28)
[2019-09-04] MEDS ORDERED: LIDOCAINE HCL/PF 2% SDV 5ML VIAL ONE (07:28)
[2019-09-04 08:11] LABS: BASO % 0.6 % (0-2.0); EOS % 3.1 % (0-4.5); HEMATOCRIT 39.6 % (32.4-45.2); HEMOGLOBIN 13.2 GM/dL (10.7-15.3); LYMPH % 33.6 % (8-40); MCH 28.5 pg (25.7-33.7); MCHC 33.3 g/dl (32.0-36.0); MEAN CELL VOLUME 85.5 fl (80-96); MEAN PLT VOLUME 8.1 fl (7.5-11.1); MONO % 6.7 % (3.8-10.2); PLATELET COUNT 365 K/MM3 (134-434); RBC 4.64 M/mm3 (3.60-5.2); RDW 14.3 % (11.6-15.6); WHITE BLOOD COUNT 10.4 K/mm3 (4.0-10.0)
[2019-09-04 08:34] LABS: ALBUMIN 3.6 g/dl (3.4-5.0); BILIRUBIN,TOTAL 0.6 mg/dL (0.2-1); BLOOD UREA NITROGEN 12.7 mg/dL (7-18); CALCIUM 9.2 mg/dL (8.5-10.1); CREATININE 0.7 mg/dL (0.55-1.3); MAGNESIUM 2.5 mg/dL (1.8-2.4); POTASSIUM 3.8 mmol/L (3.5-5.1); TOT PROT 7.7 g/dl (6.4-8.2)
[2019-09-04] MEDS ORDERED: ceFAZolin SODIUM 1 GM VIAL IVPB ONE (08:35)
[2019-09-04] MEDS ORDERED: NEOSTIGMINE METHYLSULFATE 0.5 MG/ML - 10 ML MDV ONE (09:04)
[2019-09-04] MEDS ORDERED: GLYCOPYRROLATE 0.2 MG/1 ML VIAL ONE (09:04)
[2019-09-04] MEDS ORDERED: KETOROLAC TROMETHAMINE 30 MG/1 ML VIAL ONE (09:11)
[2019-09-04] MEDS ORDERED: ACETAMINOPHEN 325 MG TABLET (FP) PO PRN (09:23)
[2019-09-04] MEDS ORDERED: morphine SULFATE 4 MG/ML VIAL IVPB PRN (09:23)
--- NOTE | 2019-09-04 09:26 | OP ---
Operative Note - Note: Operative Date: 09/04/19 Pre-Operative Diagnosis: choledocholithiasis, cholelithiasis, pancreatitis Operation: laparosocopic cholecystectomy Findings: pale gb with large stone Post-Operative Diagnosis: Same as Pre-op Surgeon: Tarun Mcdermott Service Desk Associate: Jillian Bates Anesthesiologist/LIMNOLOGIST: Storm Arriola Anesthesia: General Specimens Removed: gb Estimated Blood Loss (mls): 20 Operative Report Dictated: Yes
[2019-09-04] MEDS ORDERED: ceFAZolin SODIUM 1 GM VIAL ONE (09:30)
[2019-09-04] MEDS ORDERED: ONDANSETRON 4 MG/2 ML VIAL IVPUSH PRN (09:54)
--- NOTE | 2019-09-04 09:57 | SURG ---
Surgery Resin Filterer Note Resin Filterer: Jillian Bates PA-C Date of Service: 09/04/19 Diagnosis: choledocholithiasis, cholelithiasis, pancreatitis Procedure: laparosocopic cholecystectomy I was present for the entirety of the operative procedure. For further detail, please refer to operative report. Visit type - Case Type Case Type: ED Admission - Emergency Emergency Visit: Yes ED Registration Date: 08/30/19 Care time: The patient presented to the Emergency Department on the above date and was hospitalized for further evaluation of their emergent condition. - New patient This patient is new to me today: Yes Date on this admission: 09/04/19
[2019-09-04] MEDS ORDERED: ENOXAPARIN NA (PORCINE) 40 MG/0.4 ML DISP.SYRIN SQ SCH ×2 (10:00)
[2019-09-04] MEDS: D5-1/2NS+20 MEQ KCL - 20 MEQ/1,000 ML INFUS.BAG IV SCH ×2 (10:11→12:00)
[2019-09-04] MEDS: PANTOPRAZOLE SODIUM 40 MG VIAL IVPUSH SCH (10:11)
[2019-09-04] MEDS ORDERED: LACTATED RINGERS SOLUTION 1,000 ML IV SCH (10:45)
--- NOTE | 2019-09-04 11:28 | OP ---
DATE OF OPERATION: 09/04/2019 PREOPERATIVE DIAGNOSIS: Cholelithiasis, choledocholithiasis, pancreatitis. POSTOPERATIVE DIAGNOSIS: Cholelithiasis, choledocholithiasis, pancreatitis. PROCEDURE: Laparoscopic cholecystectomy and lavage. SURGEON: Tarun Mcdermott DO URINALYSIS TECHNICIAN: Jillian Bates PA-C ANESTHESIOLOGIST: Storm Arriola MD SPECIMEN: Gallbladder. INTRAOPERATIVE FINDINGS: Pale gallbladder with a large stone. BLOOD LOSS: 20 mL DRAINS: None. DISPOSITION: Recovery room in stable condition. BRIEF HISTORY: This is a 33-year-old female who was admitted to [facility] with choledocholithiasis and pancreatitis. She had an ERCP with multiple stone extractions done by Dr. Dickerson. After her pancreatitis clinically resolved, she presents now for surgery. PROCEDURE: The patient was placed in the supine position, general anesthesia was administered. The abdomen was prepped and draped in sterile fashion. The patient was already on Zosyn antibiotic. Next, a transverse incision was made infraumbilical with the scalpel going through the skin and subcutaneous tissue. The fascia was lifted with the Kandy clamp. Veress needle was inserted. Pneumoperitoneum was created. An 11 mm trocar was then placed, followed by insertion of a 10 mm 0- degree laparoscope. An additional 11 mm trocar was placed subxiphoid and two 5 mm trocars were placed in the right upper quadrant. Attention was turned towards the gallbladder. It was pale. It was covered with omentum. This was teased off. The fundus was lifted cephalad. The infundibulum retracted laterally. The peritoneal field was dissected down exposing a generous cystic duct and a small branch cystic artery. The cystic duct was divided with an Ethicon multifire vascular load stapler in one firing. The staple line was inspected, it was intact. There was no bleeding, no breaks, no sign of ischemia. The cystic artery was clipped and divided. The gallbladder was then liberated from the liver bed using electrocautery and hemostasis was maintained using electrocautery. The gallbladder was then removed through the infraumbilical trocar site and sent to Pathology marked as specimen. A limited lavage was done and the return was clear. The umbilical wound was irrigated. Trocars were removed under direct visualization as pneumoperitoneum was released and no bleeding was noted. The fascia at the infraumbilical trocar site was closed with multiple interrupted 0 Vicryl sutures. The 4 skin incisions were closed with Biosyn and Dermabond dressing was placed. Overall the patient tolerated the procedure well. There were no complications. DO SHIRA ROY/[id number] MTDD
[2019-09-04] MEDS: oxyCODONE HCL 5 MG TABLET PO PRN ×2 (12:23→22:58)
--- NOTE | 2019-09-04 13:02 | PN ---
Physical Exam: SUBJECTIVE: Patient seen and examined at the bedside. s/p lap peggy. mild post op pain, but otherwise comfortable. attempting to eat her lunch. denies nausea. OBJECTIVE: Patient is a 33 year old female with two c - sections, last one 08/2018, otherwise, no significant past medical history and on no home medications. She presents to the ED on 08/30/19 with abdominal pain that is constant and radiates across her abdomen with associated nausea/vomiting after eating spicy pork, spicy foods and beans. Abdominal pain worsened since onset with no relief with pain medications or rest prompting an ED visit. On admission, labs significant for elevated AST/ALT, elevated lipase 7000s, WBC 28.9, bili 3.1 with sclera icterus. She is s/p ERCP with removal of stones. s/p laparascopic cholecystectomy today. Vital Signs Period Temp Pulse Resp BP Sys/Coppola Pulse Ox Last 24 Hr 98.1 F-98.4 F 63-94 13-21 116-151/63-76 95-98 GENERAL: Awake, alert, and fully oriented, in no acute distress. mild jaundice, s/p lap peggy today HEAD: Normal with no signs of trauma. EYES: Pupils equal, round and reactive to light, extraocular movements intact, sclera anicteric, conjunctiva clear. No lid lag. EARS, NOSE, THROAT: Ears normal, nares patent, oropharynx clear without exudates. Moist mucous membranes. NECK: Normal range of motion, supple without lymphadenopathy, JVD, or masses. LUNGS: Breath sounds equal, clear to auscultation bilaterally. - on 2 liters post op, oxygen to be monitored HEART: Regular rate and rhythm, ABDOMEN: surgical dressings (3 large bandaids) clean, dry, intact, no drainage MUSCULOSKELETAL: No CVA tenderness. UPPER EXTREMITIES: No peripheral edema. LOWER EXTREMITIES: No peripheral edema. NEUROLOGICAL: Normal speech. Normal gait. PSYCHIATRIC: Cooperative. Good eye contact. Appropriate mood and affect. Laboratory Results - last 24 hr 09/03/19 09/03/19 09/04/19 12:58 12:58 07:45 WBC 10.4 H 10.4 H RBC 4.37 4.64 Hgb 12.3 13.2 Hct 37.7 D 39.6 MCV 86.3 85.5 MCH 28.2 28.5 MCHC 32.6 33.3 RDW 14.5 14.3 Plt Count 359 D 365 MPV 8.5 8.1 Absolute Neuts (auto) 6.5 5.8 Neutrophils % 62.1 56.0 Lymphocytes % 26.4 D 33.6 D Monocytes % 7.1 6.7 Eosinophils % 3.8 3.1 Basophils % 0.6 0.6 Nucleated RBC % 0 0 Sodium 139 Potassium 3.9 Chloride 104 Carbon Dioxide 27 Anion Gap 8 BUN 10.3 Creatinine 0.8 Est GFR (CKD-EPI)AfAm 113.86 Est GFR (CKD-EPI)NonAf 98.24 Random Glucose 110 H Calcium 9.3 Magnesium 2.4 Total Bilirubin 0.5 AST 18 ALT 105 H Alkaline Phosphatase 206 H Total Protein 7.3 Albumin 3.3 L 09/04/19 07:45 WBC RBC Hgb Hct MCV MCH MCHC RDW Plt Count MPV Absolute Neuts (auto) Neutrophils % Lymphocytes % Monocytes % Eosinophils % Basophils % Nucleated RBC % Sodium 146 H Potassium 3.8 Chloride 109 H Carbon Dioxide 26 Anion Gap 10 BUN 12.7 Creatinine 0.7 Est GFR (CKD-EPI)AfAm 133.81 Est GFR (CKD-EPI)NonAf 115.45 Random Glucose 94 Calcium 9.2 Magnesium 2.5 H Total Bilirubin 0.6 AST 20 ALT 91 H Alkaline Phosphatase 209 H Total Protein 7.7 Albumin 3.6 Active Medications Generic Name Dose Route Start Last Admin Trade Name Freq PRN Reason Stop Dose Admin Acetaminophen 650 mg 09/04/19 09:23 Tylenol - PO Q4H PRN FEVER Enoxaparin Sodium 40 mg 09/05/19 10:00 Lovenox - SQ DAILY NAIDA Potassium Chloride/Dextrose/Sod Cl 20 meq in 1,000 mls @ 100 mls/hr 09/04/19 09:30 09/04/19 12:00 D5-1/2ns+20 Meq Kcl - IV 0 mls ASDIR NAIDA Administration Morphine Sulfate 8 mg 09/04/19 09:23 Morphine Sulfate IVPB Q3H PRN PAIN LEVEL 7 - 10 Ondansetron HCl 4 mg 09/04/19 09:54 Zofran Injection IVPUSH Q8H PRN NAUSEA Oxycodone HCl 7.5 mg 09/04/19 09:23 09/04/19 12:23 Roxicodone - PO 7.5 mg Q4H PRN Administration PAIN LEVEL 4 - 6 Pantoprazole Sodium 40 mg 09/04/19 10:00 09/04/19 10:11 Protonix Iv IVPUSH Not Given DAILY NAIDA ASSESSMENT/PLAN: Problem List - Problems (1) S/P laparoscopic cholecystectomy Assessment/Plan: POD #0 manage pain, vitals, labs pain management early ambulation incentive spirometer SCDs d/c when surgery clears Code(s): Z90.49 - ACQUIRED ABSENCE OF OTHER SPECIFIED PARTS OF DIGESTIVE TRACT (2) Leukocytosis Assessment/Plan: resolved. WBC 28>10.4 s/p ERCP antibiotics discontinued Code(s): D72.829 - ELEVATED WHITE BLOOD CELL COUNT, UNSPECIFIED (3) Pancreatitis, gallstone Assessment/Plan: resolving s/p ERCP with shpincterotomy and stone extraction Code(s): K85.10 - BILIARY ACUTE PANCREATITIS WITHOUT NECROSIS OR INFECTION (4) Abdominal pain Assessment/Plan: improving and tolerating diet Code(s): R10.9 - UNSPECIFIED ABDOMINAL PAIN (5) Scleral icterus Assessment/Plan: bilirubin trending down s/p ercp with stone extraction, mild scleral icterus Code(s): R17 - UNSPECIFIED JAUNDICE (6) Prophylactic measure Assessment/Plan: fen on clears monitor electrolytes fat controlled diet full code Code(s): Z29.9 - ENCOUNTER FOR PROPHYLACTIC MEASURES, UNSPECIFIED (7) Morbid obesity Assessment/Plan: dietary consulted Code(s): E66.01 - MORBID (SEVERE) OBESITY DUE TO EXCESS CALORIES Visit type - Emergency Visit Emergency Visit: Yes ED Registration Date: 08/30/19 Care time: The patient presented to the Emergency Department on the above date and was hospitalized for further evaluation of their emergent condition. - New Patient This patient is new to me today: No - Critical Care Critical Care patient: No - Discharge Referral Referred to [facility] Med P.C.: No
[2019-09-05 08:26] LABS: BASO % 0.3 % (0-2.0); EOS % 1.5 % (0-4.5); HEMATOCRIT 34.7 % (32.4-45.2); HEMOGLOBIN 11.4 GM/dL (10.7-15.3); LYMPH % 27.7 % (8-40); MCH 27.9 pg (25.7-33.7); MCHC 32.9 g/dl (32.0-36.0); MEAN CELL VOLUME 84.9 fl (80-96); MONO % 7.1 % (3.8-10.2); NEUT % 63.4 % (42.8-82.8); PLATELET COUNT 345 K/MM3 (134-434); RBC 4.09 M/mm3 (3.60-5.2); RDW 14.1 % (11.6-15.6); WHITE BLOOD COUNT 12.6 K/mm3 (4.0-10.0)
[2019-09-05 09:05] LABS: ALBUMIN 3.1 g/dl (3.4-5.0); BILIRUBIN,TOTAL 0.4 mg/dL (0.2-1); CALCIUM 8.9 mg/dL (8.5-10.1); CREATININE 0.7 mg/dL (0.55-1.3); MAGNESIUM 2.5 mg/dL (1.8-2.4); POTASSIUM 3.8 mmol/L (3.5-5.1); TOT PROT 6.9 g/dl (6.4-8.2)
[2019-09-05] MEDS: PANTOPRAZOLE SODIUM 40 MG VIAL IVPUSH SCH (09:50)
[2019-09-05] MEDS ORDERED: ENOXAPARIN NA (PORCINE) 40 MG/0.4 ML DISP.SYRIN SQ SCH (10:00)
--- NOTE | 2019-09-05 11:33 | PN.GI ---
GI Progress Note Subjective: S/P Lap Leonarda POD 1 States feeling well. Some pain at trochar sites Tolerating PO - Objective Vital Signs: Vital Signs Temperature 97.9 F 09/05/19 09:42 Pulse Rate 65 09/05/19 09:42 Respiratory Rate 18 09/05/19 09:42 Blood Pressure 112/57 L 09/05/19 09:42 O2 Sat by Pulse Oximetry (%) 98 09/04/19 21:00 Constitutional: Calm Eyes: No: Sclera Icterus Cardiovascular: Yes: Regular Rate and Rhythm. No: Murmur Respiratory: Yes: CTA Bilaterally Gastrointestinal Inspection: Yes: Other (dressed trochar sites). No: Distention ...Auscultate: Yes: Normoactive Bowel Sounds ...Palpate: Yes: Soft, Tenderness (at trochar sites). No: Guarding, Tenderness , Rebound ...Percussion: No: Tympanitic Edema: No (No LE edema) Labs: CBC, BMP 09/05/19 08:08 09/05/19 08:08 INR, PTT INR 1.08 (0.83-1.09) 09/01/19 06:45 Hepatic Panel Total Bilirubin 0.4 mg/dL (0.2-1) 09/05/19 08:08 Direct Bilirubin 1.1 mg/dL (0.0-0.2) H 08/31/19 08:28 AST 20 U/L (15-37) 09/05/19 08:08 ALT 63 U/L (13-61) H 09/05/19 08:08 Alkaline Phosphatase 164 U/L (45-117) H 09/05/19 08:08 Albumin 3.1 g/dl (3.4-5.0) L 09/05/19 08:08 Problem List - Problems (1) Pancreatitis, gallstone Assessment/Plan: Clinically improved. S/P ERCP with multiple CBD stones extracted, S/P Lap Leonarda LFTs continue to improve Post op care per surgery Will sign off now. Recall GI as needed Code(s): K85.10 - BILIARY ACUTE PANCREATITIS WITHOUT NECROSIS OR INFECTION (2) Ureteral dilatation Code(s): N28.82 - MEGALOURETER
--- NOTE | 2019-09-05 13:06 | PN ---
Progress Note (short form) - Note Progress Note: POD1 s/p lap peggy under GA. Pt is doing well today, pain is minimal, no N/V, VSS. No anesthetic issues/complications noted.
[2019-09-05 13:27] VITALS: BP 104/52; PULSE 62; TEMP 98.3
[2019-09-05] MEDS ORDERED: DOCUSATE SODIUM 100 MG CAPSULE (FP) PO SCH (15:30)
--- NOTE | 2019-09-05 16:02 | DS ---
Physical Exam: SUBJECTIVE: Patient seen and examined at the bedside. reports feeling well, no malaise, no chills. eating a regular diet without nausea or vomiting. wants to go home and understands that she has to follow up with Dr. Mcdermott by calling his office to make an appointment. She reports very mild pain/soreness at surgery site, encouraged her to take Tylenol. OBJECTIVE: Patient is a 33 year old female with two c - sections, last one 08/2018, otherwise, no significant past medical history and on no home medications. She presents to the ED on 08/30/19 with abdominal pain that is constant and radiates across her abdomen with associated nausea/vomiting after eating spicy pork, spicy foods and beans. Abdominal pain worsened since onset with no relief with pain medications or rest prompting an ED visit. On admission, labs significant for elevated AST/ALT, elevated lipase 7000s, WBC 28.9, bili 3.1 with sclera icterus. She is s/p ERCP with removal of stones. She is s/p laparascopic cholecystectomy on 09/04/2019. Vital Signs Period Temp Pulse Resp BP Sys/Coppola Pulse Ox Last 24 Hr 97.9 F-98.3 F 62-74 18-18 104-118/52-60 95-98 PHYSICAL EXAM GENERAL: Awake, alert, and fully oriented, in no acute distress. HEAD: Normal with no signs of trauma. EYES: Pupils equal, round and reactive to light, extraocular movements intact, sclera anicteric, conjunctiva clear. No lid lag. EARS, NOSE, THROAT: Ears normal, nares patent, oropharynx clear without exudates. Moist mucous membranes. NECK: Normal range of motion, supple without lymphadenopathy, JVD, or masses. LUNGS: Breath sounds equal, clear to auscultation bilaterally. tolerating room air. HEART: Regular rate and rhythm, ABDOMEN: surgical dressings (3 large bandaids) clean, dry, intact, no drainage MUSCULOSKELETAL: No CVA tenderness. UPPER EXTREMITIES: No peripheral edema. LOWER EXTREMITIES: No peripheral edema. NEUROLOGICAL: Normal speech. Normal gait. PSYCHIATRIC: Cooperative. Good eye contact. Appropriate mood and affect. LABS Laboratory Results - last 24 hr 09/05/19 09/05/19 08:08 08:08 WBC 12.6 H RBC 4.09 Hgb 11.4 Hct 34.7 MCV 84.9 MCH 27.9 MCHC 32.9 RDW 14.1 Plt Count 345 MPV 8.0 Absolute Neuts (auto) 8.0 Neutrophils % 63.4 Lymphocytes % 27.7 Monocytes % 7.1 Eosinophils % 1.5 Basophils % 0.3 Nucleated RBC % 0 Sodium 140 Potassium 3.8 Chloride 108 H Carbon Dioxide 25 Anion Gap 6 L BUN 11.0 Creatinine 0.7 Est GFR (CKD-EPI)AfAm 133.81 Est GFR (CKD-EPI)NonAf 115.45 Random Glucose 92 Calcium 8.9 Magnesium 2.5 H Total Bilirubin 0.4 AST 20 ALT 63 H Alkaline Phosphatase 164 H Total Protein 6.9 Albumin 3.1 L Lipase 1263 H HOSPITAL COURSE: Date of Admission:08/30/19 Date of Discharge: 09/05/19 Minutes to complete discharge: 45 Discharge Summary Problems reviewed: Yes Reason For Visit: GALLSTONE PANCREATITIS Current Active Problems Abdominal pain (Acute) Biliary sepsis (Acute) Choledocholithiasis (Acute) Leukocytosis (Acute) Morbid obesity (Acute) Nausea & vomiting (Acute) Pancreatitis, gallstone (Acute) Prophylactic measure (Acute) S/P laparoscopic cholecystectomy (Acute) Scleral icterus (Acute) Ureteral dilatation (Acute) Condition: Improved - Instructions Diet, Activity, Other Instructions: Dear OBI MAN, Post Operative Instructions Physical activity Resume your normal everyday activity as tolerated no heavy lifting or exercise until seen by your surgeon. You may walk unlimited amounts of and climb stairs. You may resume driving the car when you feel safe and comfortable behind the wheel and no longer taking narcotics. Wound care If you have a bandage, leave it on, and keep dry. You may shower 1day after surgery but do not submerge the incisions. Do not apply lotion or ointments to incisions. Diet There are no dietary restrictions. Eat healthy, high-fiber foods. Drink 6 to 8 glasses of liquid each day. This will assist in keeping your bowels are regular. Pain management You may take Tylenol or acetaminophen or Ibuprofen (for example, Motrin, Advil etc.) Any pain prescription medication ordered should be taken as prescribed for moderate to severe pain. Call Dr. Mcdermott for any of the following: Severe pain not relieved by medication Fever of 101 or higher Excessive bleeding or drainage on dressing Inability to urinate If you experience any chest pain or shortness of breath please seek emergency treatment. Call the office to confirm your post operative appointment. Referrals: Anitha Covington CNM [Primary Care Provider] - Tarun Mcdermott MD [Staff Physician] - 1 Week Disposition: HOME - Home Medications Comprehensive Discharge Medication List: Ambulatory Orders NK [No Known Home Medication] 08/30/19 Problem List - Problems (1) S/P laparoscopic cholecystectomy Assessment/Plan: POD #1 Tylenol prn for pain no nausea, no vomiting, tolerating diet, abdomen soft, non distended, + bowel sounds. patient instructed to follow up with Dr. Mcdermott office for a post op appointment. Code(s): Z90.49 - ACQUIRED ABSENCE OF OTHER SPECIFIED PARTS OF DIGESTIVE TRACT (2) Leukocytosis Assessment/Plan: resolved. mild wbc elevated @ 12.6, no fevers, likely reactive s/p surgery. antibiotics discontinued. Code(s): D72.829 - ELEVATED WHITE BLOOD CELL COUNT, UNSPECIFIED (3) Pancreatitis, gallstone Assessment/Plan: s/p ERCP with shpincterotomy and stone extraction Code(s): K85.10 - BILIARY ACUTE PANCREATITIS WITHOUT NECROSIS OR INFECTION (4) Abdominal pain Assessment/Plan: improving and tolerating diet Code(s): R10.9 - UNSPECIFIED ABDOMINAL PAIN (5) Scleral icterus Assessment/Plan: s/p ercp with stone extraction Code(s): R17 - UNSPECIFIED JAUNDICE (6) Prophylactic measure Code(s): Z29.9 - ENCOUNTER FOR PROPHYLACTIC MEASURES, UNSPECIFIED (7) Morbid obesity Assessment/Plan: outpatient follow up Code(s): E66.01 - MORBID (SEVERE) OBESITY DUE TO EXCESS CALORIES This patient is new to me today: Yes Date on this admission: 09/05/19 Emergency Visit: No Critical Care patient: No - Discharge Referral Referred to [facility] Med P.C.: No
--- NOTE | 2019-09-06 15:38 | PATH ---
Surgical Pathology Report Patient Name: OBI MAN Med. Rec. #: [id number] /Age/Gender: 1985 (Age: 33) / F Account: [id number] Location: [address] [place] [address]/[facility] Taken: 09/04/2019 Received: 09/04/2019 Reported: 09/06/2019 Physicians: Melida Martino M.D. Specimen(s) Received GALLBLADDER Clinical History Cholelithiasis, choledocholithiasis, pancreatitis Final Diagnosis GALLBLADDER, LAPAROSCOPIC CHOLECYSTECTOMY: CHRONIC CHOLECYSTITIS WITH CHOLELITHIASIS. Electronically Signed Aisha Jain M.D. Gross Description Received in formalin, labeled "gallbladder," is a 10.3 x 2.4 x 2.3 cm. gallbladder with a 0.2 cm. in length portion of cystic duct attached. The outer surface is davila-pink with a focal defect and varies from smooth to shaggy. The lumen contains green, tenacious bile as well as abundant green, irregular to fragmented choleliths ranging from 0.1-0.7 cm in greatest dimension. The mucosa is davila with focal erosions. The wall of the gallbladder ranges from 0.1-0.2 cm. in thickness. Resident Care Spec sections are submitted in one cassette. 09/04/201909/04/2019
== END 2019-09-05 17:00 | disposition home or self-care (01) | DRG 263 ==
LOC: JER 12:24 → JERBED 16:20 → J6S 18:58
PROVIDERS: ADMIT Internal Medicine; ATTEND Nurse Practitioner Family
PROC: 0FC98ZZ Extirpation of Matter from Common Bile Duct, Via Natural or Artificial Opening Endoscopic (ICD-10-PCS; 2019-08-31)
PROC: 3E1 Administration, Physiological Systems and Anatomical Regions, Irrigation (ICD-10-PCS; 2019-09-04)
PROC: 0FT44ZZ Resection of Gallbladder, Percutaneous Endoscopic Approach (ICD-10-PCS; principal; 2019-09-04 08:00)
DX: K85.10 Biliary acute pancreatitis without necrosis or infection (principal); E66.01 Morbid (severe) obesity due to excess calories; Z68.42 Body mass index [BMI] 45.0-49.9, adult; R10.11 Right upper quadrant pain; R17 Unspecified jaundice; D72.829 Elevated white blood cell count, unspecified; R11.2 Nausea with vomiting, unspecified; K80.50 Calculus of bile duct without cholangitis or cholecystitis without obstruction; K76.0 Fatty (change of) liver, not elsewhere classified; K83.09 Other cholangitis; N28.82 Megaloureter
CPT/HCPCS: 36415; 71045-TC-FY; 74181-TC; 76000-TC-FY; 76700-TC; 80048; 80053; 80076; 81003; 82150; 83605; 83690; 83735; 84484; 84703; 85025; 85610; 85730; 86140; 86850; 86870; 86900; 86901; 86902; 87040; 87086; 94760; 99285-25; J0131; J7030